=== PATIENT | male | born 1990 | race Two or more races ===

== ENCOUNTER 2016-10-26 17:55 | Inpatient (IN) | payer OTHER ==
[~2016-10-26] VITALS: Ht 165.1 cm; Wt 72.6 kg
[2016-10-26 20:09] LABS: CONTROL LINE INT CTR LINE PRESENT; METHADONE URINE NEGATIVE (NEGATIVE); TRICYCLIC ANTIDEPRESS URINE NEGATIVE (NEGATIVE)
[2016-10-26 20:21] LABS: ALBUMIN 4.5 GM/DL (3.2-5.2); ALBUMIN/GLOBULIN RATIO 1.22 (1.00-1.93); ALKALINE PHOSPHATASE 92 U/L (45-117); ALT/SGPT 30 U/L (12-78); ANION GAP 10 MEQ/L (8-16); AST/SGOT 25 U/L (15-37); BILIRUBIN,DIRECT < 0.1 MG/DL (0.0-0.2); BILIRUBIN,TOTAL 0.3 MG/DL (0.2-1.0); BLOOD UREA NITROGEN 11 MG/DL (7-18); CALCIUM LEVEL 8.8 MG/DL (8.5-10.1); CARBON DIOXIDE LEVEL 28 MEQ/L (21-32); CHLORIDE LEVEL 108 MEQ/L (98-107); CREATININE FOR GFR 1.15 MG/DL (0.70-1.30); GLOMERULAR FILTRATION RATE > 60.0 (>60); GLUCOSE, FASTING 97 MG/DL (70-105); POTASSIUM SERUM 3.6 MEQ/L (3.5-5.1); SODIUM LEVEL 146 MEQ/L (136-145); TOTAL PROTEIN 8.2 GM/DL (6.4-8.2)
[2016-10-26 20:45] LABS: MEAN CORPUSCULAR HGB CONC 34.4 g/dl (32.0-36.5); MEAN CORPUSCULAR VOLUME 87.3 fl (80.0-96.0); RED CELL DISTRIBUTION WIDTH 12.5 % (11.5-14.5); WHITE BLOOD COUNT 6.6 K/mm3 (4.0-10.0)
--- NOTE | 2016-10-27 01:42 | REP ---
Clinical: Acute chest pain . Comparison: None . Technique: PA and lateral. Findings: The mediastinum and cardiac silhouette are normal. The lung john are clear and without acute consolidation, effusion, or pneumothorax. The skeletal structures are intact and normal. Impression: 1. No acute cardiopulmonary process. Signed by Hamilton Camacho MD 10/27/2016 01:33 A
--- NOTE | 2016-10-27 14:13 | EDDOCDS ---
Physician Documentation [facility] Name: Neno Chapman Age: 26 yrs Sex: Male : 1990 Arrival Date: 10/26/2016 Time: 17:55 Bed OBSERVATION Private MD: Gaby [facility] [place] Disposition: 10/27/16 14:11 Hospitalization ordered by Juan Ham for Inpatient Admission. Preliminary diagnosis is Major depressive disorder, recurrent, unspecified. - Bed requested for Admit. - Status is Inpatient Admission. ml6 - Condition is Stable. - Problem is new. - Symptoms have improved. Historical: - Allergies: no known allergies; - Home Meds: 1. Percocet Oral 1 tab as needed (Last dose: 10/26/2016 16:00) - PMHx: none; - PSHx: none; - Social history: Smoking status: Patient states was never smoker of tobacco. No barriers to communication noted, The patient speaks fluent Khmer. - Family history: Not pertinent. - : The pt / caregiver states he / she is not on anticoagulants. Home medication list is obtained from the patient. - Exposure Risk Screening:: None identified. Vital Signs: 10/26 17:58 BP 187 / 101; Pulse 105; Resp 20; Pulse Ox 97% on R/A; Weight 63.5 kg / 139.99 lbs (R); elp Height 5 ft. 5 in. (165.10 cm) (R); 19:29 BP 167 / 84; Pulse 84; Resp 18; Temp 98.4(O); Pulse Ox 99% on R/A; mgs 10/27 00:13 BP 156 / 74; Pulse 94; Resp 18; Temp 98.0(O); Pulse Ox 97% on R/A; Pain 0/10; rw1 04:38 BP 145 / 75; Pulse 83; Resp 16; Temp 97.7(T); Pulse Ox 96% on R/A; Pain 0/10; rw1 10:09 BP 164 / 78; Pulse 81; Resp 16; Temp 98.1(O); Pulse Ox 98% on R/A; Pain 0/10; ml6 13:41 BP 155 / 83; Pulse 84; Resp 16; Temp 98.3(O); Pulse Ox 98% on R/A; Pain 0/10; ml6 10/26 17:58 Body Mass Index 23.30 (63.50 kg, 165.10 cm) elp MDM: 10/26 19:24 Consult PFS/PSA/Demurrage Clerk ordered. br1 19:24 Consult PFS/PSA/Demurrage Clerk: Patient's case requires discussion with on-call br1 Psychiatrist ordered. 19:24 PSA/PFS to call Nursing Woodenware Assembler, to enter patient data on [place] Safe Act if patient br1 involuntarily admitted or transferred for SI or HI ordered. 19:24 Confirm accurate psychiatric medication list and times of last dosage ordered. br1 19:24 Detain Pt Until Medically/PFS Cleared ordered. br1 19:24 Recheck B/P ordered. br1 19:24 Oral Temp ordered. br1 19:24 Acetaminophen Level Ordered. EDMS 19:24 Basic Metabolic Profile Ordered. EDMS 19:24 Complete Blood Count Ordered. EDMS 19:24 Drug Eval Toxicology ED Only Ordered. EDMS 19:25 Ethyl Alcohol (ethanol) Ordered. EDMS 19:25 Liver Profile Ordered. EDMS 19:25 Salicylate Level Ordered. EDMS 19:25 Thyroid Stimulating Hormone Ordered. EDMS 19:30 Chest, 2 View (pa\E\lat) Ordered. EDMS 19:30 ECG WITH READING ER PHYS+CARDIAG ordered. EDMS 19:39 TROPONIN Ordered. EDMS 19:41 Financial registration complete. [email or web address] 19:46 [facility] Payment Agreement was scanned into Email Data Source and attached to record. [email or web address] 20:27 Drug Eval Toxicology ED Only Reviewed. br1 20:39 Acetaminophen Level Reviewed. br1 20:39 Basic Metabolic Profile Reviewed. br1 20:39 Ethyl Alcohol (ethanol) Reviewed. br1 20:39 Salicylate Level Reviewed. br1 20:39 Liver Profile Reviewed. br1 20:39 Thyroid Stimulating Hormone Reviewed. br1 20:39 TROPONIN Reviewed. br1 20:50 Complete Blood Count Reviewed. br1 10/27 05:05 REGULAR DIET PLASTIC STERLING+DIET ordered. EDMS 07:02 Consult PFS/PSA/Demurrage Clerk complete. rb 11:50 Consult PFS/PSA/Demurrage Clerk: Patient's case requires discussion with on-call rb Psychiatrist complete. 11:50 PSA/PFS to call Nursing Woodenware Assembler, to enter patient data on [place] Safe [place] if patient rb involuntarily admitted or transferred for SI or HI complete. 12:00 REGULAR DIET PLASTIC STERLING+DIET ordered. EDMS 13:33 Admit to IMHU: ordered. EDMS 13:36 [facility] Legal paperwork was scanned into Email Data Source and attached to record. cs Signatures: Dispatcher [employer] EDAaron Torrez, Yvonne Isidro RN, RN RN jan Baxter, Emelia, PSA PSA rb Aline, Sumit, PSA PSA cs Mariano Maddox MD MD br1 Maurice Verdin RN RN ml6 Maria Guadalupe Mcgill MD MD June Rowland, Reg Reg [email or web address] The chart was reviewed and I authenticate all verbal orders and agree with the evaluation and treatment provided.Corrections: (The following items were deleted from the chart) 10/26 19:39 19:30 TROPONIN+LAB ordered. EDMS EDMS Attachments: 19:46 [facility] Payment Agreement [email or web address] MTDD
--- NOTE | 2016-10-27 14:14 | EDDOCDS ---
Nurse's Notes [facility] Name: Neno Chapman Age: 26 yrs Sex: Male : 1990 Arrival Date: 10/26/2016 Time: 17:55 Bed OBSERVATION Private MD: Gaby [facility] Diagnosis: Major depressive disorder, recurrent, unspecified Presentation: 10/26 18:02 Presenting complaint: Patient states: Ingested large amounts of vodka, along with a dwg Percocet, present and states they have had ''problems at home''. Denies suicidal attempt or ideation. Adult Sepsis Screening: The patient does not have new or worsening altered mentation. Patient's respiratory rate is less than 22. Systolic blood pressure is greater than 100. Patient has a qSOFA score of 0- Negative Sepsis Screen. Suicide/Homicide risk assessment- the patient denies having any suicidal and/or homicidal ideations and does not present with any other emotional, behavioral or mental health complaints. Status: The patient is an active duty nutritional services host. Transition of care: patient was not received from another setting of care. 18:02 Method Of Arrival: Walkin/Carried/Asstd dwg 18:10 Presenting complaint: states: states that during an argument earlier today dwg patient pulled out a pocket knife and threatened to stab self, patient denies saying that. Acuity level changed due to complexity of care. Suicide/Homicide risk assessment- The patient admits to and/or has been reported to be having suicidal ideations. The patient reports that he/she has a recent or current history of substance abuse. 18:10 Acuity: KAYCEE Level [address] [facility] Triage Assessment: 18:08 General: Appears in no apparent distress, Behavior is cooperative. Pain: Denies pain. [facility] 10/27 14:04 HIV screening NA for this visit Offered previously. ml6 Historical: - Allergies: no known allergies; - Home Meds: 1. Percocet Oral 1 tab as needed (Last dose: 10/26/2016 16:00) - PMHx: none; - PSHx: none; - Social history: Smoking status: Patient states was never smoker of tobacco. No barriers to communication noted, The patient speaks fluent Azeri. - Family history: Not pertinent. - : The pt / caregiver states he / she is not on anticoagulants. Home medication list is obtained from the patient. - Exposure Risk Screening:: None identified. Screenin:29 Screening information is obtained from the patient. Fall risk: No risks identified. sherwin Assistance ADL's: requires no assistance with activities of daily living. Abuse/DV Screen: The patient / caregiver reports he/she is: not in a situation that causes fear, pain or injury. Nutritional screening: No deficits noted. Advance Directives: Currently, there is no health care proxy. There is no active DNR order. There is no living will. There is no Power of Boat Garnisher. Advance directive information has not previously been placed in an [facility] medical record. Further advance directive information is declined. home support is adequate. Assessment: 10/26 18:16 General: Direct to room 30, and member from his unit present as escort. Giulia Elliott RN made aware.. 18:55 Reassessment: Dinner tray brought in for patient's child. Shook patient and tried to kcs rouse him - snoring loudly and would not wake up. , child and escort remain at bedside.. 19:28 General: Appears in no apparent distress, Behavior is cooperative. Pain: Location: left mgs clavicle, anterior aspect of left upper chest and left breast Pain currently is 5 out of 10 on a pain scale. Pain does not radiate. Neurological: Level of Consciousness is awake, alert. Cardiovascular: Capillary refill < 3 seconds Heart tones S1 S2 present. Respiratory: Airway is patent Respiratory effort is even, unlabored, Respiratory pattern is regular, symmetrical, Breath sounds are clear bilaterally. Derm: Skin is normal. 20:30 Reassessment: Patient appears in no apparent distress at this time. resting quietly on rw1 stretcher, safety maintained will monitor.. 21:29 Reassessment: Patient appears in no apparent distress at this time. resting quietly on rw1 stretcher, safety maintained will monitor.. 22:24 General: Appears in no apparent distress, comfortable, Behavior is cooperative, quiet, rw1 escorts at bedside at all times and V.O.S outside door. Safety maintained will monitor.. Neurological: No deficits noted. Level of Consciousness is awake, alert, obeys commands, Oriented to person, place, time. Respiratory: Airway is patent Respiratory effort is even, unlabored. Derm: Skin is pink, warm & dry. normal. 23:25 Reassessment: Patient appears in no apparent distress at this time. resting quietly on rw1 stretcher, safety maintained will monitor.. 10/27 00:27 Reassessment: Patient appears in no apparent distress at this time. Patient denies pain rw1 at this time. resting quietly on stretcher with eyes closed, safety maintained will monitor.. 01:29 General: Appears in no apparent distress, comfortable, Behavior is cooperative, Smells sherwin of alcohol. Pain: Denies pain. Neurological: No deficits noted. Level of Consciousness is awake, alert, obeys commands, Oriented to person, place, time, Speech is normal. Respiratory: No deficits noted. Airway is patent Respiratory effort is even, unlabored, Respiratory pattern is regular, symmetrical. Derm: Skin is pink, warm & dry. 02:22 Reassessment: Patient appears in no apparent distress at this time. resting quietly on rw1 stretcher with eyes closed, safety maintained will monitor.. 03:32 Reassessment: Patient appears in no apparent distress at this time. resting quietly on rw1 stretcher, safety maintained will monitor.. 04:38 General: Appears in no apparent distress, comfortable, Behavior is appropriate for age, rw1 cooperative, quiet. Pain: Denies pain. Neurological: Level of Consciousness is awake, obeys commands, Oriented to person, place, time. Respiratory: Airway is patent Respiratory effort is even, unlabored. Derm: Skin is pink, warm & dry. normal. 05:00 General: Appears in no apparent distress, comfortable, Behavior is quiet. Pain: Denies ko2 pain. Neurological: Level of Consciousness is awake, alert, obeys commands. Respiratory: Airway is patent Respiratory effort is even, unlabored, Respiratory pattern is regular, symmetrical. Derm: Skin is normal. 05:31 Reassessment: Patient appears in no apparent distress at this time. resting quietly on rw1 stretcher, safety maintained will monitor.. 06:23 General: Appears in no apparent distress, comfortable, Behavior is resting quietly on rw1 stretcher with escort at bedside, safety maintained. Respiratory: Airway is patent Respiratory effort is even, unlabored. Derm: Skin is pink, warm & dry. normal. 07:45 Reassessment: Patient appears in no apparent distress at this time. sleeping, kr3 respirations unlabored. Derm: Skin is normal. 08:37 Reassessment: Patient appears in no apparent distress at this time. awaiting PSA kr3 evaluation. 09:10 General: Appears in no apparent distress, comfortable, Behavior is appropriate for age, ml6 cooperative. Pain: Denies pain. Neurological: No deficits noted. Level of Consciousness is awake, alert, Oriented to person, place, time. Cardiovascular: No deficits noted. Capillary refill < 3 seconds is brisk in bilateral fingers toes Heart tones S1 S2 present. Respiratory: No deficits noted. Airway is patent Respiratory effort is even, unlabored, Respiratory pattern is regular, symmetrical, Breath sounds are clear bilaterally. 10:12 Reassessment: Patient appears in no apparent distress at this time. Patient denies pain ml6 at this time. Patient states symptoms have improved. no change from previous assessment, patient awaiting disposition. 11:15 Reassessment: Patient appears in no apparent distress at this time. Patient denies pain ml6 at this time. Patient states symptoms have improved. patient sitting in room speaking with chain of command. 12:20 General: Appears in no apparent distress, comfortable, Behavior is appropriate for age, ml6 cooperative. Pain: Denies pain. Location: right eye and left eye Pain currently is 5 out of 10 on a pain scale. Pain does not radiate. Quality of pain is described as aching, Pain began 2-3 days ago Is continuous. Neurological: No deficits noted. Cardiovascular: No deficits noted. Capillary refill < 3 seconds is brisk in bilateral fingers toes Heart tones S1 S2 present. Respiratory: No deficits noted. Airway is patent Respiratory effort is even, unlabored, Respiratory pattern is regular, symmetrical, Breath sounds are clear bilaterally. GI: No deficits noted. 13:30 Reassessment: Patient appears in no apparent distress at this time. Patient denies pain ml6 at this time. Patient states symptoms have improved. 14:03 General: Appears in no apparent distress, Behavior is appropriate for age, cooperative. ml6 Pain: Denies pain. Neurological: No deficits noted. Level of Consciousness is awake, alert, Oriented to person, place, time. Cardiovascular: No deficits noted. Capillary refill < 3 seconds is brisk in bilateral fingers toes. Respiratory: No deficits noted. Airway is patent Respiratory effort is even, unlabored, Respiratory pattern is regular, symmetrical. Mental Health Eval: 10:06 Mental health consult is initiated at 09:10. Status: The patient is an active rb duty nutritional services host. [facility] Behavioral Health: The patient is not an established patient of [facility] Behavioral Health. 10:35 Referral Information: Evaluation referral is generated by a relative; spouse, and Escort. The patient was referred for evaluation because Pt presented to ED after Pt stated +SI. Pt presented +ETOH, is now sober. Pt reported "Made a poor decision yesterday, I started drinking and I over drank". According to Pt, of 3 years wants a divorce, but currently living in same house. Pt admitted to fleeting thoughts of SI, more often when "I feel like I can't complete a task or increase sense of failure". Pt stated "My and Son's life would be better if I wasn't around anymore". According to , They had an argument, PT was intoxicated, stated"no one cares" and took out his knife as he walked away. called MPs. Pt reported currently in [place] PT program to prepare for [employer]. . Subjective: The patients chief complaint is Depressed, +SI, unknown plan.. Delusions are denied. Patient's mood is dysphoric, hopeless, Hallucinations are denied. Mental Health history: alcohol abuse, depression, suicide gesture by hanging. reported Pt made a SI gesture a year ago, while in [facility], by hanging a rope in the garage with intent to hang himself. stopped him. Police were called but never showed up according to . Mental Health Admissions: None. Current Outpatient Mental Health Services: None. Pt stated completed [facility] on [place]. Was sober for 117 days after completing the program then started drinking again. . Current living environment is The patient currently lives with his / her spouse, and 2y/o son.. Patient presents to Emergency Department with the following symptoms within the past 2 weeks: alcohol abuse, depressed mood, feelings of helplessness/hopelessness, marital problem, poor impulse control, suicidal ideation with plan for unknown. Substance abuse: Patient uses of liquor, 1/2 liter. Mental status exam: Patients appearance is appropriate, Patient's behavior is cooperative, minimally responsive Speech is unspontaneous Affect is flat. Mood is dysphoric. Hallucinations are denied. Appetite is normal. Memory is good. Energy level is normal. Content of thought is depressive. , Thought process is characterized by flight of ideas. Cognitive level is oriented to person, place, time and situation Patient's insight is poor. Judgement is poor. Rapport with interviewer is good. guarded. Suicidal Ideation present with a plan to kill self by unknown. Homicidal ideation is not present. Disposition: Medically cleared for disposition by Maurice Leija DO Psychiatric Consult is performed by phone with Dr Alyssa Denis. [facility] Admission Criteria: The patient is experiencing suicidal ideation. The patient displays symptoms of severe psychiatric disorder resulting in disordered behavior and significant interference with his / her ability to maintain self care. The patient requires continuous observation and/or control to protect self, others or property. The patient's care requires a multi-modal treatment plan under close supervision and coordination due to the complexity and severity of the patient's symptoms. Legal Status: Patient's legal status will be Emergency admission: . [place] Safe Act: [place] Safe Act is applicable to this patient. The patient poses a risk to self or other and the Nursing Break Up Worker has been notified. He/She will enter the patient's data. Insurance Pre-Certification: Not Required. 14:02 DSM-V Differential Diagnosis: Unspecified Depressive Disorder (F32.9). Narrative: Pt rb legals placed with belongings. Vital Signs: 10/26 17:58 BP 187 / 101; Pulse 105; Resp 20; Pulse Ox 97% on R/A; Weight 63.5 kg (R); Height 5 ft. elp 5 in. (165.10 cm) (R); 19:29 BP 167 / 84; Pulse 84; Resp 18; Temp 98.4(O); Pulse Ox 99% on R/A; mgs 10/27 00:13 BP 156 / 74; Pulse 94; Resp 18; Temp 98.0(O); Pulse Ox 97% on R/A; Pain 0/10; rw1 04:38 BP 145 / 75; Pulse 83; Resp 16; Temp 97.7(T); Pulse Ox 96% on R/A; Pain 0/10; rw1 10:09 BP 164 / 78; Pulse 81; Resp 16; Temp 98.1(O); Pulse Ox 98% on R/A; Pain 0/10; ml6 13:41 BP 155 / 83; Pulse 84; Resp 16; Temp 98.3(O); Pulse Ox 98% on R/A; Pain 0/10; ml6 10/26 17:58 Body Mass Index 23.30 (63.50 kg, 165.10 cm) elp Vitals: 10/26 17:58 Log In Time: October 26, 2016 at 17:56. RN notified that patient meets Red Flag elp criteria. ED Course: 17:56 Patient visited by Jasmin Lynn PCA. elp 17:56 Patient moved to Waiting elp 17:58 Gaby [facility] is Private Physician. elp 17:59 Patient visited by Jasmin Lynn PCA. elp 18:06 Triage Initiated dwg 18:12 Patient moved to 30 dwg 18:20 Patient visited by Don Angel. dem1 18:35 Patient visited by Don Angel. dem1 18:50 Patient visited by Don Angel. dem1 19:05 Mariano Maddox MD is Attending Physician. br1 19:15 Pt greeted and oriented to ED. Patient advised of names of staff involved in care, kb5 location of call salgado, wait times and NPO status. Accompanied by Significant Other, and Escort, Patient has correct armband on for positive identification. Placed in psych safe attire. Bed in low position. Call light in reach. Side rails up X 1. Security observing. Property removed, given to SO, per patient request. Psych Safety Check: Location: Medical Room. Visual Assessment: Cooperative. 19:22 Patient visited by Mariano Maddox MD. br1 19:30 Patient visited by Maurice Yu RN. mgs 19:30 Psych Safety Check: Location: Medical Room. Visual Assessment: Cooperative. kb5 19:45 Psych Safety Check: Location: Medical Room. Visual Assessment: Cooperative. kb5 19:46 [facility] Payment Agreement was scanned into [employer]Ga[employer] and attached to record. ks16 19:47 Patient visited by Renny Renteria PCA. kb5 19:53 Patient visited by Renny Renteria PCA. kb5 20:00 Psych Safety Check: Location: Medical Room. Visual Assessment: Cooperative. kb5 20:00 EKG done. (by ED staff). Reviewed by Mariano Maddox MD. kb5 20:15 Psych Safety Check: Location: Medical Room. Visual Assessment: Cooperative. kb5 20:21 Patient visited by Rudy Renteriaopher LAW OFFICE RECEPTIONIST. kb5 20:30 Psych Safety Check: Location: Medical Room. Visual Assessment: Cooperative. kb5 20:32 Patient visited by Rudy Renteriaopher, LAW OFFICE RECEPTIONIST. kb5 20:45 Psych Safety Check: Location: Medical Room. Visual Assessment: Cooperative. kb5 20:50 Patient visited by Rudy Renteriaopher LAW OFFICE RECEPTIONIST. kb5 21:00 Psych Safety Check: Location: Medical Room. Visual Assessment: Cooperative. kb5 21:06 Patient visited by Tl Renteriaer LAW OFFICE RECEPTIONIST. kb5 21:15 Psych Safety Check: Location: Medical Room. Visual Assessment: Cooperative. kb5 21:17 Patient visited by Renny Renteria LAW OFFICE RECEPTIONIST. kb5 21:29 Gerry Paula LPN is Primary Nurse. rw1 21:30 Psych Safety Check: Location: Medical Room. Visual Assessment: Cooperative. kb5 21:36 Patient visited by Renny Renteria LAW OFFICE RECEPTIONIST. kb5 21:45 Psych Safety Check: Location: Medical Room. Visual Assessment: Cooperative. kb5 21:51 Patient visited by Gerry Paula LPN. rw1 22:00 Psych Safety Check: Location: Medical Room. Visual Assessment: Cooperative. kb5 22:05 Patient visited by Gerry Paula LPN. rw1 22:15 Psych Safety Check: Location: Medical Room. Visual Assessment: Cooperative. kb5 22:21 Patient visited by Tl Renteriaer LAW OFFICE RECEPTIONIST. kb5 22:30 Psych Safety Check: Location: Medical Room. Visual Assessment: Cooperative. kb5 22:42 Patient visited by Tl Renteriaer LAW OFFICE RECEPTIONIST. kb5 22:45 Psych Safety Check: Location: Medical Room. Visual Assessment: Cooperative. kb5 23:00 Patient visited by Rudy Renteriaopher LAW OFFICE RECEPTIONIST. kb5 23:00 Psych Safety Check: Location: Medical Room. Visual Assessment: Cooperative. kb5 23:15 Patient visited by Rudy Renteriaopher LAW OFFICE RECEPTIONIST. kb5 23:15 Psych Safety Check: Location: Medical Room. Visual Assessment: Cooperative. kb5 23:30 Patient visited by Gerry Paula LPN. rw1 23:30 Psych Safety Check: Location: Medical Room. Visual Assessment: Cooperative. kb5 23:45 Patient visited by Gerry Paula LPN. rw1 23:45 Psych Safety Check: Location: Medical Room. Visual Assessment: Cooperative. kb5 10/27 00:00 Psych Safety Check: Location: Medical Room. Visual Assessment: Cooperative. kb5 00:01 Patient visited by Renny Renteria PCA. kb5 00:08 Attending Physician role handed off by Mariano Maddox MD mm11 00:08 Maurice Leija DO is Attending Physician. mm11 00:15 Psych Safety Check: Location: Medical Room. Visual Assessment: Cooperative. kb5 00:16 Patient visited by Renny Renteria PCA. kb5 00:30 Psych Safety Check: Location: Medical Room. Visual Assessment: Cooperative. kb5 00:31 Patient visited by Renny Renteria PCA. kb5 00:45 Psych Safety Check: Location: Medical Room. Visual Assessment: Cooperative. kb5 00:49 Patient visited by Renny Renteria PCA. kb5 01:00 Psych Safety Check: Location: Medical Room. Visual Assessment: Cooperative. kb5 01:10 Patient visited by Renny Renteria PCA. kb5 01:15 Patient visited by Renny Renteria PCA. kb5 01:15 Psych Safety Check: Location: Medical Room. Visual Assessment: Cooperative. kb5 01:29 The patient / caregiver is instructed regarding the plan of care and ED course. Patient sherwin has correct armband on for positive identification. Placed in psych safe attire. Bed in low position. Call light in reach. Side rails up X 1. Security observing. 01:29 No IV's were initiated during this patient's visit. No procedures done that require sherwin assistance. 01:30 Patient visited by Renny Renteria PCA. kb5 01:30 Psych Safety Check: Location: Medical Room. Visual Assessment: Cooperative. kb5 01:45 Patient visited by Renny Renteria PCA. kb5 01:45 Psych Safety Check: Location: Medical Room. Visual Assessment: Cooperative. kb5 01:56 Chest, 2 View (pa\\E\\lat) Returned. EDMS 02:00 Patient visited by Renny Renteria PCA. kb5 02:00 Psych Safety Check: Location: Medical Room. Visual Assessment: Cooperative. kb5 02:15 Patient visited by Renny Renteria PCA. kb5 02:15 Psych Safety Check: Location: Medical Room. Visual Assessment: Cooperative. kb5 02:30 Patient visited by Renny Renteria PCA. kb5 02:30 Psych Safety Check: Location: Medical Room. Visual Assessment: Cooperative. kb5 02:35 Patient moved to [facility] sep 02:47 Patient visited by Gerry Paula LPN. rw1 02:59 Patient visited by Antonio Gloria. tr 03:16 Patient visited by Antonio Gloria. tr 03:28 Patient visited by Antonio Gloria. tr 03:46 Patient visited by Antonio Gloria. tr 04:02 Patient visited by Antonio Gloria. tr 04:18 Patient visited by Antonio Gloria. tr 04:44 Patient visited by Antonio Gloria. tr 05:00 Patient visited by Antonio Gloria. tr 05:17 Patient visited by Antonio Gloria. tr 05:29 Patient visited by Antonio Gloria. tr 05:40 Patient moved to [facility]11 05:48 Patient visited by Antonio Gloria. tr 06:00 Patient visited by Antonio Gloria. tr 06:46 Patient visited by Antonio Gloria. tr 07:00 Patient visited by Antonio Gloria. tr 07:08 Patient visited by Louis Ramirez Security Aide. pjf 07:17 Patient visited by Louis Ramirez Security Aide. pjf 07:34 Patient visited by Louis Ramirez Security Aide. pjf 07:45 Primary Nurse role handed off by Gerry Paula LPN kr3 08:22 Patient visited by Louis Ramirez Security Aide. pjf 08:35 Patient visited by Louis Ramirez Security Aide. pjf 08:45 Patient visited by Louis Ramirez Security Aide. pjf 08:58 Patient visited by Louis Ramirez Security Aidonur. pjf 09:15 Patient visited by Louis Ramirez Security Aidonur. pjf 09:30 Patient visited by Louis Ramirez Security Aide. pjf 09:58 Patient visited by Maurice Verdin RN. ml6 10:17 Patient visited by Louis Ramirez Security Aidonur. pjf 10:44 Patient visited by Louis Ramirez Security Aidonur. pjf 10:54 Patient visited by Louis Ramirez Security Aidonur. pjf 11:02 Psych Safety Check: Location: Psych Room. Visual Assessment: Cooperative. tmm1 11:16 Psych Safety Check: Location: Psych Room. Visual Assessment: Cooperative. tmm1 11:34 Psych Safety Check: Location: Psych Room. Visual Assessment: Cooperative. tmm1 12:03 Psych Safety Check: Location: Psych Room. Visual Assessment: Cooperative. tmm1 12:20 Psych Safety Check: Location: Psych Room. Visual Assessment: Cooperative. tmm1 12:34 Psych Safety Check: Location: Psych Room. Visual Assessment: Cooperative. tmm1 12:50 Psych Safety Check: Location: Psych Room. Visual Assessment: Cooperative. tmm1 13:11 Psych Safety Check: Location: Psych Room. Visual Assessment: Cooperative. tmm1 13:33 Psych Safety Check: Location: Psych Room. Visual Assessment: Cooperative. tmm1 13:36 [facility] Legal paperwork was scanned into mGaadi and attached to record. cs 13:48 Psych Safety Check: Location: Psych Room. Visual Assessment: Cooperative. tmm1 14:04 Psych Safety Check: Location: Psych Room. Visual Assessment: Cooperative. tmm1 14:10 Juan Ham MD is Hospitalizing Provider. fg Attachments: 10/27 13:36 [facility] Legal paperwork cs Order Results: Lab Order: Acetaminophen Level; SPEC'M 10/26/16 19:49 Test: ACETAMINOPHEN LEVEL; Value: < 2.0; Range: 10.0-30.0; Abnormal: Below low normal; Units: UG/ML; Status: F Lab Order: Basic Metabolic Profile; SPEC'M 10/26/16 19:49 Test: GLUCOSE, FASTING; Value: 97; Range: 70-105; Units: MG/DL; Status: F Test: BLOOD UREA NITROGEN; Value: 11; Range: 7-18; Units: MG/DL; Status: F Test: CREATININE FOR GFR; Value: 1.15; Range: 0.70-1.30; Units: MG/DL; Status: F Test: GLOMERULAR FILTRATION RATE; Value: > 60.0; Range: >60; Status: F Test: SODIUM LEVEL; Value: 146; Range: 136-145; Abnormal: Above high normal; Units: MEQ/L; Status: F Test: POTASSIUM SERUM; Value: 3.6; Range: 3.5-5.1; Units: MEQ/L; Status: F Test: CHLORIDE LEVEL; Value: 108; Range: 98-107; Abnormal: Above high normal; Units: MEQ/L; Status: F Test: CARBON DIOXIDE LEVEL; Value: 28; Range: 21-32; Units: MEQ/L; Status: F Test: ANION GAP; Value: 10; Range: 8-16; Units: MEQ/L; Status: F Test: CALCIUM LEVEL; Value: 8.8; Range: 8.5-10.1; Units: MG/DL; Status: F Test Note: ; Units are mL/min/1.73 m2 Chronic Kidney Disease Staging per NKF: Stage I & II GFR >=60 Normal to Mildly Decreased Stage III GFR 30-59 Moderately Decreased Stage IV GFR 15-29 Severely Decreased Stage V GFR <15 Very Little GFR Left ESRD GFR <15 on TOOL MECHANIC Lab Order: Complete Blood Count; [facility] 10/26/16 19:49 Test: WHITE BLOOD COUNT; Value: 6.6; Range: 4.0-10.0; Units: K/mm3; Status: F Test: RED BLOOD COUNT; Value: 5.44; Range: 4.30-6.10; Units: M/mm3; Status: F Test: HEMOGLOBIN; Value: 16.3; Range: 14.0-18.0; Units: g/dl; Status: F Test: HEMATOCRIT; Value: 47.5; Range: 42.0-52.0; Units: %; Status: F Test: MEAN CORPUSCULAR VOLUME; Value: 87.3; Range: 80.0-96.0; Units: fl; Status: F Test: MEAN CORPUSCULAR HEMOGLOBIN; Value: 30.0; Range: 27.0-33.0; Units: pg; Status: F Test: MEAN CORPUSCULAR HGB CONC; Value: 34.4; Range: 32.0-36.5; Units: g/dl; Status: F Test: RED CELL DISTRIBUTION WIDTH; Value: 12.5; Range: 11.5-14.5; Units: %; Status: F Test: PLATELET COUNT, AUTOMATED; Value: 230; Range: 150-450; Units: k/mm3; Status: F Lab Order: Drug Eval Toxicology ED Only; SPEC'M 10/26/16 19:49 Test: AMPHETAMINES LEVEL URINE; Value: NEGATIVE; Range: NEGATIVE; Status: F Test: BARBITURATES URINE; Value: NEGATIVE; Range: NEGATIVE; Status: F Test: BENZODIAZEPINES URINE; Value: NEGATIVE; Range: NEGATIVE; Status: F Test: CANNABINOIDS URINE; Value: NEGATIVE; Range: NEGATIVE; Status: F Test: COCAINE METABOLITE URINE; Value: NEGATIVE; Range: NEGATIVE; Status: F Test: METHADONE URINE; Value: NEGATIVE; Range: NEGATIVE; Status: F Test: OPIATES URINE; Value: NEGATIVE; Range: NEGATIVE; Status: F Test: TRICYCLIC ANTIDEPRESS URINE; Value: NEGATIVE; Range: NEGATIVE; Status: F Test Note: ; ALL PRESUMPTIVE POSITIVE FINDINGS ARE UNCONFIRMED NORMAL VALUES THRESHOLD IN NG/ML AMPHETAMINES 1000 METHAMPHETAMINES 1000 BARBITURATES 300 BENZODIAZEPINES 300 CANNABINOIDS (THC) 50 COCAINE METABOLITE 300 METHADONE 300 OPIATES 300 PHENCYCLIDINE 25 TRICYCLIC ANTIDEPRESSANTS 1000 RESULTS ARE FOR MEDICAL PURPOSES ONLY. ALL URINE SPECIMENS WILL BE SAVED FOR 3 DAYS. IF CONFIRMATION OF A PRESUMPTIVE POSTIVE SCREEN RESULT IS DESIRED, CALL CHEMISTRY ([phone]) AND REQUEST URINE TO BE SENT TO REFERENCE LAB. FOR A LIST OF CLOSELY RELATED COMPOUNDS PLEASE CALL THE LAB. Lab Order: Ethyl Alcohol (ethanol); SPEC'M 10/26/16 19:49 Test: ETHYL ALCOHOL (ETHANOL); Value: 0.314; Range: 0.000-0.010; Abnormal: Above high normal; Units: %; Status: F Lab Order: Liver Profile; SPEC'M 10/26/16 19:49 Test: AST/SGOT; Value: 25; Range: 15-37; Units: U/L; Status: F Test: ALT/SGPT; Value: 30; Range: 12-78; Units: U/L; Status: F Test: ALKALINE PHOSPHATASE; Value: 92; Range: 45-117; Units: U/L; Status: F Test: BILIRUBIN,TOTAL; Value: 0.3; Range: 0.2-1.0; Units: MG/DL; Status: F Test: BILIRUBIN,DIRECT; Value: < 0.1; Range: 0.0-0.2; Units: MG/DL; Status: F Test: TOTAL PROTEIN; Value: 8.2; Range: 6.4-8.2; Units: GM/DL; Status: F Test: ALBUMIN; Value: 4.5; Range: 3.2-5.2; Units: GM/DL; Status: F Test: ALBUMIN/GLOBULIN RATIO; Value: 1.22; Range: 1.00-1.93; Status: F Lab Order: Salicylate Level; SPEC'10/26/16 19:49 Test: SALICYLATE LEVEL; Value: < 1.7; Range: 5.0-30.0; Abnormal: Below low normal; Units: MG/DL; Status: F Lab Order: Thyroid Stimulating Hormone; SPEC10/26/16 19:49 Test: THYROID STIMULATING HORMONE; Value: 0.358; Range: 0.358-3.740; Units: uIU/ML; Status: F Lab Order: TROPONIN; SPEC10/26/16 19:49 Test: TROPONIN I; Value: < 0.02; Range: < 0.10; Units: NG/ML; Status: F Test Note: ; Troponin I Reference Interval for [employer] LOCI: 99th Percentile= 0.00-0.045 ng/ml Risk Stratification: <= 0.10 ng/ml Decreased Risk for Adverse Clinical Events. 0.10-1.50 ng/ml Increased Risk for Adverse Clinical Events. Evaluation of additional criterion and/or repeat testing in 2-6 hours is suggested to rule out myocardial damage. >= 1.50 ng/ml Indicative of Myocardial Injury. Radiology Order: Chest, 2 View (pa\\E\\lat) Test: Chest, 2 View (pa\\E\\lat) REASON FOR EXAMINATION: Chest Pain; Clinical: Acute chest pain .; ; Comparison: None .; ; Technique: PA and lateral.; ; Findings:; The mediastinum and cardiac silhouette are normal. The lung john are clear and; without acute consolidation, effusion, or pneumothorax. The skeletal structures; are intact and normal.; ; Impression:; 1. No acute cardiopulmonary process.; ; ; Signed by; Hamilton Camacho MD 10/27/2016 01:33 A; Outcome: 14:03 Discharge Assessment: patient administered narcotics - no. The following High Risk ml6 Discharge criteria are identified: None. Admitted to Psych accompanied by tech, via wheelchair, with chart. Condition: stable. No special radiology studies were completed. 14:11 Decision to Hospitalize by Provider. fg 14:13 Patient left the ED. ml6 Signatures: Dispatcher [employer] EDMS Marlee Regalado, RN RN Jayla Pa, RN RN shelbig1 Aaron Doll, RN Yvonne Isidro, RN RN sherwin Sandhu, Emelia, PSA PSA rb Sumit Mireles, PSA PSA cs Ashley, Louis, Security A[facility] Faizan, Antonio Leah Syed,RN RN kr3 Gerry Paula LPN ABRASIVE WATER JET CUTTER OPERATOR rw1 Renny Renteria, LAW OFFICE RECEPTIONIST LAW OFFICE RECEPTIONIST kb5 Maurice Leija, DO mm11 Mariano Maddox MD MD br1 Maurice Verdin, RN RN ml6 Don Angel dem1 Teresa, Alisa, LAW OFFICE RECEPTIONIST LAW OFFICE RECEPTIONIST tmm1 Jasmin Lynn, LAW OFFICE RECEPTIONIST LAW OFFICE RECEPTIONIST elp Rose Marie Garcia,RN RN ko2 Maurice Yu,RN RN Maria Guadalupe Sandy MD MD fg Sorenson, Kimberly, Reg Reg [email or web address] Corrections: (The following items were deleted from the chart) 10/26 18:12 18:02 Acuity: KAYCEE Level 3 [facility] 20:21 19:30 Psych Safety Check: Location: Psych Room. Visual Assessment: nancy Huynh5 kb5 20:21 19:45 Psych Safety Check: Location: Psych Room. Visual Assessment: Lino kb5 kb5 10/27 03:32 03:29 Reassessment: Patient appears in no apparent distress at this time. resting rw1 quietly on stretcher, safety maintained will monitor.. kmg1 MTDD
[2016-10-27] MEDS ORDERED: OXYC1TAB23 PO (14:19)
[2016-10-27 14:29] VITALS: BP 171/85
[2016-10-27] MEDS ORDERED: traZODone 50 MG TAB PO PRN (15:15)
[2016-10-27] MEDS ORDERED: MOM 30ML SUSPENSION UDC PO PRN (15:15)
[2016-10-27] MEDS ORDERED: MAALOX 30 ML SUSP *UDC PO PRN (15:15)
[2016-10-27] MEDS ORDERED: ACETAMINOPHEN TAB 650MG DOSE (2X325MG) PO PRN (15:15)
[2016-10-27] MEDS ORDERED: IBUP800T23 PO (16:09)
[2016-10-27 18:00] VITALS: BP 160/84
--- NOTE | 2016-10-27 21:12 | ECGEPIP ---
Stationary ECG Study [facility] - ED Test Date: 2016-10-26 Pat Name: MILTON KEE Department: Room: - Gender: M Tomato Grader: [place] : 1990 Requested By: ROB Vivas Order Number: [id number] Reading MD: Ashley Dudley Measurements Intervals [place] Rate: 81 P: 33 AL: 134 QRS: -57 QRSD: 109 T: 2 QT: 384 QTc: 448 Interpretive Statements SINUS RHYTHM INCOMPLETE RIGHT BUNDLE BRANCH BLOCK LEFT ANTERIOR FASCICULAR BLOCK NSTTW ABNORMALITY NO PRIOR FOR COMPARISON Electronically Signed On 10-27-2016 21:12:17 EST by Ashley Dudley
[2016-10-28 06:11] VITALS: BP 130/58
[2016-10-28 07:37] LABS: ALBUMIN/GLOBULIN RATIO 1.25 (1.00-1.93); ALKALINE PHOSPHATASE 70 U/L (45-117); ALT/SGPT 24 U/L (12-78); ANION GAP 7 MEQ/L (8-16); AST/SGOT 17 U/L (15-37); BILIRUBIN,TOTAL 1.2 MG/DL (0.2-1.0); BLOOD UREA NITROGEN 12 MG/DL (7-18); CALCIUM LEVEL 9.4 MG/DL (8.5-10.1); CARBON DIOXIDE LEVEL 32 MEQ/L (21-32); CHLORIDE LEVEL 102 MEQ/L (98-107); CREATININE FOR GFR 1.09 MG/DL (0.70-1.30); GLOMERULAR FILTRATION RATE > 60.0 (>60); GLUCOSE, FASTING 106 MG/DL (70-105); POTASSIUM SERUM 4.1 MEQ/L (3.5-5.1); SODIUM LEVEL 141 MEQ/L (136-145); TOTAL PROTEIN 7.2 GM/DL (6.4-8.2)
[2016-10-28] MEDS: buPROPion 75 MG TAB PO SCH (08:38)
[2016-10-28 18:29] VITALS: BP 129/62
[2016-10-29 06:27] VITALS: BP 119/55
[2016-10-29] MEDS: buPROPion 75 MG TAB PO SCH (09:30)
--- NOTE | 2016-10-29 13:54 | MHHPE ---
DATE OF ADMISSION: 10/27/2016 CHIEF COMPLAINT: Frohna depressed. SUBJECTIVE: He is 26 years old, he is in the . He is , they have been together for a few years, have a 2-year-old son, they are going through a divorce. The patient came in as he had been drinking heavily, just started, and had a Percocet as well. They have been undergoing difficulties at home, going through the divorce. The patient had been distressed, and he had thoughts of killing himself, though no firm plans, and felt hopeless, suggesting that his and son would be better if he was not around. He feels he had said that because of the alcohol. He then at one point had taken out his knife, and he walked away, and his had called the police. He has been depressed, off and on, says he has tried hiding his difficulties, but that it has been getting more difficult. 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 He says he has generally tended to sleep well, appetite has been good, denies pervasive feelings of depression, though does indicate he feels he gets depressed when he drinks. He was somewhat vague on this, but suggested that his use of alcohol has contributed to difficulties within the marriage, to the point where they are thinking of , they are planning for a legal separation to begin with. He says he has enrolled in [facility] at [facility]. He says he has been planning to go to [employer], is unsure if his admission will impact that, is due to go later this year. He has been in the for a few years, has had one deployment, denies any trauma related symptoms or any symptoms indicative of a concussion. He says he was sober for about 4 months, at some point last year, last summer, and felt more "content" when he was not drinking. Suggested improvement in his mood overall when he is free of alcohol. The emergency room (ER) note suggests that he had thought of hanging himself when he was in [facility] within the last year, he does not seem to acknowledge that. This information was obtained by the ER from the patient's , apparently he had hung a rope in the garage with the intent of hanging himself and that the had stopped him. She also said that the police were called but they never showed up. PAST PSYCHIATRIC HISTORY: No history of inpatient hospitalization. Does not attend outpatient behavioral health clinic at [facility], but does say he is enrolled in [facility], the alcohol abuse program. No history consistent with hypomania or erasmo, nor with any psychosis. MEDICATIONS: He uses Percocet very rarely for pain. PAST MEDICAL HISTORY: None significant. SOCIAL HISTORY: He says he was raised in [facility], and that it was generally a good childhood, raised by a single mother. He graduated. He has been in the for the last few years. He denies any history of abuse when growing up. He and his have been together for the last few years, have a 2-year-old son, they are going through difficulties, and are planning on . He says he has a few friends, he can confide in them, both locally as well as in [facility]. MENTAL STATUS EXAMINATION: He neat, he is relatively short, he is well built, he is cooperative overall, but somewhat guarded at times. He is coherent. Good eye contact. His affect is restricted in range. He denies any active suicidal thoughts or intent. No homicidal ideas or intent. Currently, no evidence of any psychosis. His cognition is grossly intact. Intellect is average. Judgment and insight are questionable. ASSESSMENT: Adjustment disorder with depressed mood. Alcohol use disorder. Has been depressed, stressed, particularly secondary to his difficulties with alcohol, and the impact this has made on his marriage. It is not convincing that he has a major depressive episode. PLAN: He is admitted to the inpatient psychiatry unit, placed on relevant precautions. I would suggest obtaining collateral information, involving him in individual, group and milieu therapy. He will receive a medicine consult if indicated. I would hold off on using antidepressants, the indications are not convincing for now. We will need to reassess this as further clinical assessments are made. I would anticipate that he will be here 5-7 days. Collateral information will be important. He will be discharged with followup back to [facility] when he is stable. VITAL SIGNS: Blood pressure 130/58, pulse 59, temperature 98.2. Assessment took 40 minutes.
--- NOTE | 2016-10-29 15:14 | EDDOCDS ---
Physician Documentation [facility] Name: Neno Chapman Age: 26 yrs Sex: Male : 1990 Arrival Date: 10/26/2016 Time: 17:55 Bed OBSERVATION Private MD: Gaby [facility] [place]position: 10/27/16 14:11 Hospitalization ordered by Juan Ham for Inpatient Admission. Preliminary diagnosis is Major depressive disorder, recurrent, unspecified. - Bed requested for Admit. - Status is Inpatient Admission. ml6 - Condition is Stable. - Problem is new. - Symptoms have improved. Historical: - Allergies: no known allergies; - Home Meds: 1. Percocet Oral 1 tab as needed (Last dose: 10/26/2016 16:00) - PMHx: none; - PSHx: none; - Social history: Smoking status: Patient states was never smoker of tobacco. No barriers to communication noted, The patient speaks fluent Vietnamese. - Family history: Not pertinent. - : The pt / caregiver states he / she is not on anticoagulants. Home medication list is obtained from the patient. - Exposure Risk Screening:: None identified. Vital Signs: 10/26 17:58 BP 187 / 101; Pulse 105; Resp 20; Pulse Ox 97% on R/A; Weight 63.5 kg / 139.99 lbs (R); elp Height 5 ft. 5 in. (165.10 cm) (R); 19:29 BP 167 / 84; Pulse 84; Resp 18; Temp 98.4(O); Pulse Ox 99% on R/A; mgs 10/27 00:13 BP 156 / 74; Pulse 94; Resp 18; Temp 98.0(O); Pulse Ox 97% on R/A; Pain 0/10; rw1 04:38 BP 145 / 75; Pulse 83; Resp 16; Temp 97.7(T); Pulse Ox 96% on R/A; Pain 0/10; rw1 10:09 BP 164 / 78; Pulse 81; Resp 16; Temp 98.1(O); Pulse Ox 98% on R/A; Pain 0/10; ml6 13:41 BP 155 / 83; Pulse 84; Resp 16; Temp 98.3(O); Pulse Ox 98% on R/A; Pain 0/10; ml6 10/26 17:58 Body Mass Index 23.30 (63.50 kg, 165.10 cm) elp MDM: 10/26 19:24 Consult PFS/PSA/Covering Machine Operator Helper ordered. br1 19:24 Consult PFS/PSA/Covering Machine Operator Helper: Patient's case requires discussion with on-call br1 Psychiatrist ordered. 19:24 PSA/PFS to call Nursing Key Person, to enter patient data on [place] Safe Act if patient br1 involuntarily admitted or transferred for SI or HI ordered. 19:24 Confirm accurate psychiatric medication list and times of last dosage ordered. br1 19:24 Detain Pt Until Medically/PFS Cleared ordered. br1 19:24 Recheck B/P ordered. br1 19:24 Oral Temp ordered. br1 19:24 Acetaminophen Level Ordered. EDMS 19:24 Basic Metabolic Profile Ordered. EDMS 19:24 Complete Blood Count Ordered. EDMS 19:24 Drug Eval Toxicology ED Only Ordered. EDMS 19:25 Ethyl Alcohol (ethanol) Ordered. EDMS 19:25 Liver Profile Ordered. EDMS 19:25 Salicylate Level Ordered. EDMS 19:25 Thyroid Stimulating Hormone Ordered. EDMS 19:30 Chest, 2 View (pa\E\lat) Ordered. EDMS 19:30 ECG WITH READING ER PHYS+CARDIAG ordered. EDMS 19:39 TROPONIN Ordered. EDMS 19:41 Financial registration complete. [email or web address] 19:46 [facility] Payment Agreement was scanned into [employer] and attached to record. [email or web address] 20:27 Drug Eval Toxicology ED Only Reviewed. br1 20:39 Acetaminophen Level Reviewed. br1 20:39 Basic Metabolic Profile Reviewed. br1 20:39 Ethyl Alcohol (ethanol) Reviewed. br1 20:39 Salicylate Level Reviewed. br1 20:39 Liver Profile Reviewed. br1 20:39 Thyroid Stimulating Hormone Reviewed. br1 20:39 TROPONIN Reviewed. br1 20:50 Complete Blood Count Reviewed. br1 10/27 05:05 REGULAR DIET PLASTIC STERLING+DIET ordered. EDMS 07:02 Consult PFS/PSA/Covering Machine Operator Helper complete. rb 11:50 Consult PFS/PSA/Covering Machine Operator Helper: Patient's case requires discussion with on-call rb Psychiatrist complete. 11:50 PSA/PFS to call Nursing Key Person, to enter patient data [place] Safe [place] if patient rb involuntarily admitted or transferred for SI or HI complete. 12:00 REGULAR DIET PLASTIC STERLIGN+DIET ordered. EDMS 13:33 Admit to IMHU: ordered. EDMS 13:36 [facility] Legal paperwork was scanned into [employer] and attached to record. cs 10/28 15:15 T-Sheet-- Draft Copy was scanned into [employer] and attached to record. gb 15:16 ECG/EKG was scanned into [employer] and attached to record. gb Signatures: Dispatcher [employer] Aaron Parrish RN RN dwg Newman, Jill New RN GWEN Sandhu, Emelia, PSA PSA rb Sumit Mireles, PSA PSA cs Sudha Machado, Reg Reg gb Mariano Maddox MD MD brMaurice Red RN RN ml6 Maria Guadalupe Mcgill MD MD fg Sorenson, Kimberly, Reg Reg [email or web address] The chart was reviewed and I authenticate all verbal orders and agree with the evaluation and treatment provided.Corrections: (The following items were deleted from the chart) 10/26 19:39 19:30 TROPONIN+LAB ordered. EDMS EDMS Attachments: 19:46 [facility] Payment Agreement [email or web address] 10/28 15:15 T-Sheet-- Draft Copy gb 15:16 ECG/EKG gb Chart Complete MTDD
--- NOTE | 2016-10-29 15:14 | EDDOCDS ---
Nurse's Notes [facility] Name: Neno Chapman Age: 26 yrs Sex: Male : 1990 Arrival Date: 10/26/2016 Time: 17:55 Bed OBSERVATION Private MD: Gaby [facility] Diagnosis: Major depressive disorder, recurrent, unspecified Presentation: 10/26 18:02 Presenting complaint: Patient states: Ingested large amounts of vodka, along with a dwg Percocet, present and states they have had ''problems at home''. Denies suicidal attempt or ideation. Adult Sepsis Screening: The patient does not have new or worsening altered mentation. Patient's respiratory rate is less than 22. Systolic blood pressure is greater than 100. Patient has a qSOFA score of 0- Negative Sepsis Screen. Suicide/Homicide risk assessment- the patient denies having any suicidal and/or homicidal ideations and does not present with any other emotional, behavioral or mental health complaints. Status: The patient is an active duty food service worker hospital. Transition of care: patient was not received from another setting of care. 18:02 Method Of Arrival: Walkin/Carried/Asstd dwg 18:10 Presenting complaint: states: states that during an argument earlier today dwg patient pulled out a pocket knife and threatened to stab self, patient denies saying that. Acuity level changed due to complexity of care. Suicide/Homicide risk assessment- The patient admits to and/or has been reported to be having suicidal ideations. The patient reports that he/she has a recent or current history of substance abuse. 18:10 Acuity: KAYCEE Level 3 [facility] Triage Assessment: 18:08 General: Appears in no apparent distress, Behavior is cooperative. Pain: Denies pain. [facility] 10/27 14:04 HIV screening NA for this visit Offered previously. ml6 Historical: - Allergies: no known allergies; - Home Meds: 1. Percocet Oral 1 tab as needed (Last dose: 10/26/2016 16:00) - PMHx: none; - PSHx: none; - Social history: Smoking status: Patient states was never smoker of tobacco. No barriers to communication noted, The patient speaks fluent Upper Sorbian. - Family history: Not pertinent. - : The pt / caregiver states he / she is not on anticoagulants. Home medication list is obtained from the patient. - Exposure Risk Screening:: None identified. Screenin:29 Screening information is obtained from the patient. Fall risk: No risks identified. sherwin Assistance ADL's: requires no assistance with activities of daily living. Abuse/DV Screen: The patient / caregiver reports he/she is: not in a situation that causes fear, pain or injury. Nutritional screening: No deficits noted. Advance Directives: Currently, there is no health care proxy. There is no active DNR order. There is no living will. There is no Power of [employer]. Advance directive information has not previously been placed in an [facility] medical record. Further advance directive information is declined. home support is adequate. Assessment: 10/26 18:16 General: Direct to room 30, and member from his unit present as escort. Giulia Elliott RN made aware.. 18:55 Reassessment: Dinner tray brought in for patient's child. Shook patient and tried to kcs rouse him - snoring loudly and would not wake up. , child and escort remain at bedside.. 19:28 General: Appears in no apparent distress, Behavior is cooperative. Pain: Location: left mgs clavicle, anterior aspect of left upper chest and left breast Pain currently is 5 out of 10 on a pain scale. Pain does not radiate. Neurological: Level of Consciousness is awake, alert. Cardiovascular: Capillary refill < 3 seconds Heart tones S1 S2 present. Respiratory: Airway is patent Respiratory effort is even, unlabored, Respiratory pattern is regular, symmetrical, Breath sounds are clear bilaterally. Derm: Skin is normal. 20:30 Reassessment: Patient appears in no apparent distress at this time. resting quietly on rw1 stretcher, safety maintained will monitor.. 21:29 Reassessment: Patient appears in no apparent distress at this time. resting quietly on rw1 stretcher, safety maintained will monitor.. 22:24 General: Appears in no apparent distress, comfortable, Behavior is cooperative, quiet, rw1 escorts at bedside at all times and V.O.S outside door. Safety maintained will monitor.. Neurological: No deficits noted. Level of Consciousness is awake, alert, obeys commands, Oriented to person, place, time. Respiratory: Airway is patent Respiratory effort is even, unlabored. Derm: Skin is pink, warm & dry. normal. 23:25 Reassessment: Patient appears in no apparent distress at this time. resting quietly on rw1 stretcher, safety maintained will monitor.. 10/27 00:27 Reassessment: Patient appears in no apparent distress at this time. Patient denies pain rw1 at this time. resting quietly on stretcher with eyes closed, safety maintained will monitor.. 01:29 General: Appears in no apparent distress, comfortable, Behavior is cooperative, Smells sherwin of alcohol. Pain: Denies pain. Neurological: No deficits noted. Level of Consciousness is awake, alert, obeys commands, Oriented to person, place, time, Speech is normal. Respiratory: No deficits noted. Airway is patent Respiratory effort is even, unlabored, Respiratory pattern is regular, symmetrical. Derm: Skin is pink, warm & dry. 02:22 Reassessment: Patient appears in no apparent distress at this time. resting quietly on rw1 stretcher with eyes closed, safety maintained will monitor.. 03:32 Reassessment: Patient appears in no apparent distress at this time. resting quietly on rw1 stretcher, safety maintained will monitor.. 04:38 General: Appears in no apparent distress, comfortable, Behavior is appropriate for age, rw1 cooperative, quiet. Pain: Denies pain. Neurological: Level of Consciousness is awake, obeys commands, Oriented to person, place, time. Respiratory: Airway is patent Respiratory effort is even, unlabored. Derm: Skin is pink, warm & dry. normal. 05:00 General: Appears in no apparent distress, comfortable, Behavior is quiet. Pain: Denies ko2 pain. Neurological: Level of Consciousness is awake, alert, obeys commands. Respiratory: Airway is patent Respiratory effort is even, unlabored, Respiratory pattern is regular, symmetrical. Derm: Skin is normal. 05:31 Reassessment: Patient appears in no apparent distress at this time. resting quietly on rw1 stretcher, safety maintained will monitor.. 06:23 General: Appears in no apparent distress, comfortable, Behavior is resting quietly on rw1 stretcher with escort at bedside, safety maintained. Respiratory: Airway is patent Respiratory effort is even, unlabored. Derm: Skin is pink, warm & dry. normal. 07:45 Reassessment: Patient appears in no apparent distress at this time. sleeping, kr3 respirations unlabored. Derm: Skin is normal. 08:37 Reassessment: Patient appears in no apparent distress at this time. awaiting PSA kr3 evaluation. 09:10 General: Appears in no apparent distress, comfortable, Behavior is appropriate for age, ml6 cooperative. Pain: Denies pain. Neurological: No deficits noted. Level of Consciousness is awake, alert, Oriented to person, place, time. Cardiovascular: No deficits noted. Capillary refill < 3 seconds is brisk in bilateral fingers toes Heart tones S1 S2 present. Respiratory: No deficits noted. Airway is patent Respiratory effort is even, unlabored, Respiratory pattern is regular, symmetrical, Breath sounds are clear bilaterally. 10:12 Reassessment: Patient appears in no apparent distress at this time. Patient denies pain ml6 at this time. Patient states symptoms have improved. no change from previous assessment, patient awaiting disposition. 11:15 Reassessment: Patient appears in no apparent distress at this time. Patient denies pain ml6 at this time. Patient states symptoms have improved. patient sitting in room speaking with chain of command. 12:20 General: Appears in no apparent distress, comfortable, Behavior is appropriate for age, ml6 cooperative. Pain: Denies pain. Location: right eye and left eye Pain currently is 5 out of 10 on a pain scale. Pain does not radiate. Quality of pain is described as aching, Pain began 2-3 days ago Is continuous. Neurological: No deficits noted. Cardiovascular: No deficits noted. Capillary refill < 3 seconds is brisk in bilateral fingers toes Heart tones S1 S2 present. Respiratory: No deficits noted. Airway is patent Respiratory effort is even, unlabored, Respiratory pattern is regular, symmetrical, Breath sounds are clear bilaterally. GI: No deficits noted. 13:30 Reassessment: Patient appears in no apparent distress at this time. Patient denies pain ml6 at this time. Patient states symptoms have improved. 14:03 General: Appears in no apparent distress, Behavior is appropriate for age, cooperative. ml6 Pain: Denies pain. Neurological: No deficits noted. Level of Consciousness is awake, alert, Oriented to person, place, time. Cardiovascular: No deficits noted. Capillary refill < 3 seconds is brisk in bilateral fingers toes. Respiratory: No deficits noted. Airway is patent Respiratory effort is even, unlabored, Respiratory pattern is regular, symmetrical. Mental Health Eval: 10:06 Mental health consult is initiated at 09:10. 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 [facility] Behavioral Health: The patient is not an established patient of [facility] Behavioral Health. 10:35 Referral Information: Evaluation referral is generated by a relative; spouse, and Escort. The patient was referred for evaluation because Pt presented to ED after Pt stated +SI. Pt presented +ETOH, is now sober. Pt reported "Made a poor decision yesterday, I started drinking and I over drank". According to Pt, of 3 years wants a divorce, but currently living in same house. Pt admitted to fleeting thoughts of SI, more often when "I feel like I can't complete a task or increase sense of failure". Pt stated "My and Son's life would be better if I wasn't around anymore". According to , They had an argument, PT was intoxicated, stated"no one cares" and took out his knife as he walked away. called MPs. Pt reported currently in [place] PT program to prepare for [employer]. . Subjective: The patients chief complaint is Depressed, +SI, unknown plan.. Delusions are denied. Patient's mood is dysphoric, hopeless, Hallucinations are denied. Mental Health history: alcohol abuse, depression, suicide gesture by hanging. reported Pt made a SI gesture a year ago, while in [facility], by hanging a rope in the garage with intent to hang himself. stopped him. Police were called but never showed up according to . Mental Health Admissions: None. Current Outpatient Mental Health Services: None. Pt stated completed [facility] on [place]. Was sober for 117 days after completing the program then started drinking again. . Current living environment is The patient currently lives with his / her spouse, and 2y/o son.. Patient presents to Emergency Department with the following symptoms within the past 2 weeks: alcohol abuse, depressed mood, feelings of helplessness/hopelessness, marital problem, poor impulse control, suicidal ideation with plan for unknown. Substance abuse: Patient uses of liquor, 1/2 liter. Mental status exam: Patients appearance is appropriate, Patient's behavior is cooperative, minimally responsive Speech is unspontaneous Affect is flat. Mood is dysphoric. Hallucinations are denied. Appetite is normal. Memory is good. Energy level is normal. Content of thought is depressive. , Thought process is characterized by flight of ideas. Cognitive level is oriented to person, place, time and situation Patient's insight is poor. Judgement is poor. Rapport with interviewer is good. guarded. Suicidal Ideation present with a plan to kill self by unknown. Homicidal ideation is not present. Disposition: Medically cleared for disposition by Maurice Leija DO Psychiatric Consult is performed by phone with Dr Alyssa Denis. [facility] Admission Criteria: The patient is experiencing suicidal ideation. The patient displays symptoms of severe psychiatric disorder resulting in disordered behavior and significant interference with his / her ability to maintain self care. The patient requires continuous observation and/or control to protect self, others or property. The patient's care requires a multi-modal treatment plan under close supervision and coordination due to the complexity and severity of the patient's symptoms. Legal Status: Patient's legal status will be Emergency admission: . [place] Safe Act: [place] Safe Act is applicable to this patient. The patient poses a risk to self or other and the Nursing Syruper has been notified. He/She will enter the patient's data. Insurance Pre-Certification: Not Required. 14:02 DSM-V Differential Diagnosis: Unspecified Depressive Disorder (F32.9). Narrative: Pt rb legals placed with belongings. Vital Signs: 10/26 17:58 BP 187 / 101; Pulse 105; Resp 20; Pulse Ox 97% on R/A; Weight 63.5 kg (R); Height 5 ft. elp 5 in. (165.10 cm) (R); 19:29 BP 167 / 84; Pulse 84; Resp 18; Temp 98.4(O); Pulse Ox 99% on R/A; mgs 10/27 00:13 BP 156 / 74; Pulse 94; Resp 18; Temp 98.0(O); Pulse Ox 97% on R/A; Pain 0/10; rw1 04:38 BP 145 / 75; Pulse 83; Resp 16; Temp 97.7(T); Pulse Ox 96% on R/A; Pain 0/10; rw1 10:09 BP 164 / 78; Pulse 81; Resp 16; Temp 98.1(O); Pulse Ox 98% on R/A; Pain 0/10; ml6 13:41 BP 155 / 83; Pulse 84; Resp 16; Temp 98.3(O); Pulse Ox 98% on R/A; Pain 0/10; ml6 10/26 17:58 Body Mass Index 23.30 (63.50 kg, 165.10 cm) elp Vitals: 10/26 17:58 Log In Time: October 26, 2016 at 17:56. RN notified that patient meets Red Flag elp criteria. ED Course: 17:56 Patient visited by Jasmin Lynn PCA. elp 17:56 Patient moved to Waiting elp 17:58 Gaby [facility] [place] Private Physician. elp 17:59 Patient visited by Jasmin Lynn PCA. elp 18:06 Triage Initiated dwg 18:12 Patient moved to 30 dwg 18:20 Patient visited by Don Angel. dem1 18:35 Patient visited by Don Angel. dem1 18:50 Patient visited by Don Angel. dem1 19:05 Mariano Maddox MD is Attending Physician. br1 19:15 Pt greeted and oriented to ED. Patient advised of names of staff involved in care, kb5 location of call salgado, wait times and NPO status. Accompanied by Significant Other, and Escort, Patient has correct armband on for positive identification. Placed in psych safe attire. Bed in low position. Call light in reach. Side rails up X 1. Security observing. Property removed, given to SO, per patient request. Psych Safety Check: Location: Medical Room. Visual Assessment: Cooperative. 19:22 Patient visited by Mariano Maddox MD. br1 19:30 Patient visited by Maurice Yu RN. mgs 19:30 Psych Safety Check: Location: Medical Room. Visual Assessment: Cooperative. kb5 19:45 Psych Safety Check: Location: Medical Room. Visual Assessment: Cooperative. kb5 19:46 [facility] [place] was scanned into [email or web address] and attached to record. ks16 19:47 Patient visited by Renny Renteria PCA. kb5 19:53 Patient visited by Renny Renteria PCA. kb5 20:00 Psych Safety Check: Location: Medical Room. Visual Assessment: Cooperative. kb5 20:00 EKG done. (by ED staff). Reviewed by Mariano Maddox MD. kb5 20:15 Psych Safety Check: Location: Medical Room. Visual Assessment: Cooperative. kb5 20:21 Patient visited by Rudy Renteriaopher PHYSICAL THERAPIST CLINIC DIRECTOR. kb5 20:30 Psych Safety Check: Location: Medical Room. Visual Assessment: Cooperative. kb5 20:32 Patient visited by Rudy Renteriaopher, PHYSICAL THERAPIST CLINIC DIRECTOR. kb5 20:45 Psych Safety Check: Location: Medical Room. Visual Assessment: Cooperative. kb5 20:50 Patient visited by Rudy Renteriaopher PHYSICAL THERAPIST CLINIC DIRECTOR. kb5 21:00 Psych Safety Check: Location: Medical Room. Visual Assessment: Cooperative. kb5 21:06 Patient visited by Tl Renteriaer PHYSICAL THERAPIST CLINIC DIRECTOR. kb5 21:15 Psych Safety Check: Location: Medical Room. Visual Assessment: Cooperative. kb5 21:17 Patient visited by Renny Renteria PHYSICAL THERAPIST CLINIC DIRECTOR. kb5 21:29 Gerry Paula LPN is Primary Nurse. rw1 21:30 Psych Safety Check: Location: Medical Room. Visual Assessment: Cooperative. kb5 21:36 Patient visited by Renny Renteria PHYSICAL THERAPIST CLINIC DIRECTOR. kb5 21:45 Psych Safety Check: Location: Medical Room. Visual Assessment: Cooperative. kb5 21:51 Patient visited by Gerry Paula LPN. rw1 22:00 Psych Safety Check: Location: Medical Room. Visual Assessment: Cooperative. kb5 22:05 Patient visited by Gerry Paula LPN. rw1 22:15 Psych Safety Check: Location: Medical Room. Visual Assessment: Cooperative. kb5 22:21 Patient visited by Tl Renteriaer PHYSICAL THERAPIST CLINIC DIRECTOR. kb5 22:30 Psych Safety Check: Location: Medical Room. Visual Assessment: Cooperative. kb5 22:42 Patient visited by Tl Renteriaer PHYSICAL THERAPIST CLINIC DIRECTOR. kb5 22:45 Psych Safety Check: Location: Medical Room. Visual Assessment: Cooperative. kb5 23:00 Patient visited by Rudy Renteriaopher PHYSICAL THERAPIST CLINIC DIRECTOR. kb5 23:00 Psych Safety Check: Location: Medical Room. Visual Assessment: Cooperative. kb5 23:15 Patient visited by Rudy Renteriaopher PHYSICAL THERAPIST CLINIC DIRECTOR. kb5 23:15 Psych Safety Check: Location: Medical Room. Visual Assessment: Cooperative. kb5 23:30 Patient visited by Gerry Paula LPN. rw1 23:30 Psych Safety Check: Location: Medical Room. Visual Assessment: Cooperative. kb5 23:45 Patient visited by Gerry Paula LPN. rw1 23:45 Psych Safety Check: Location: Medical Room. Visual Assessment: Cooperative. kb5 10/27 00:00 Psych Safety Check: Location: Medical Room. Visual Assessment: Cooperative. kb5 00:01 Patient visited by Renny Renteria PCA. kb5 00:08 Attending Physician role handed off by Mariano Maddox MD mm11 00:08 Maurice Leija DO is Attending Physician. mm11 00:15 Psych Safety Check: Location: Medical Room. Visual Assessment: Cooperative. kb5 00:16 Patient visited by Renny Renteria PCA. kb5 00:30 Psych Safety Check: Location: Medical Room. Visual Assessment: Cooperative. kb5 00:31 Patient visited by Renny Renteria PCA. kb5 00:45 Psych Safety Check: Location: Medical Room. Visual Assessment: Cooperative. kb5 00:49 Patient visited by Renny Renteria PCA. kb5 01:00 Psych Safety Check: Location: Medical Room. Visual Assessment: Cooperative. kb5 01:10 Patient visited by Renny Renteria PCA. kb5 01:15 Patient visited by Renny Renteria PCA. kb5 01:15 Psych Safety Check: Location: Medical Room. Visual Assessment: Cooperative. kb5 01:29 The patient / caregiver is instructed regarding the plan of care and ED course. Patient sherwin has correct armband on for positive identification. Placed in psych safe attire. Bed in low position. Call light in reach. Side rails up X 1. Security observing. 01:29 No IV's were initiated during this patient's visit. No procedures done that require sherwin assistance. 01:30 Patient visited by Renny Renteria PCA. kb5 01:30 Psych Safety Check: Location: Medical Room. Visual Assessment: Cooperative. kb5 01:45 Patient visited by Renny Renteria PCA. kb5 01:45 Psych Safety Check: Location: Medical Room. Visual Assessment: Cooperative. kb5 01:56 Chest, 2 View (pa\\E\\lat) Returned. EDMS 02:00 Patient visited by Renny Renteria PCA. kb5 02:00 Psych Safety Check: Location: Medical Room. Visual Assessment: Cooperative. kb5 02:15 Patient visited by Renny Renteria PCA. kb5 02:15 Psych Safety Check: Location: Medical Room. Visual Assessment: Cooperative. kb5 02:30 Patient visited by Renny Renteria PCA. kb5 02:30 Psych Safety Check: Location: Medical Room. Visual Assessment: Cooperative. kb5 02:35 Patient moved to [facility] sep 02:47 Patient visited by Gerry Paula LPN. rw1 02:59 Patient visited by Antonio Gloria. tr 03:16 Patient visited by Antonio Gloria. tr 03:28 Patient visited by Antonio Gloria. tr 03:46 Patient visited by Antonio Gloria. tr 04:02 Patient visited by Antonio Gloria. tr 04:18 Patient visited by Antonio Gloria. tr 04:44 Patient visited by Antonio Gloria. tr 05:00 Patient visited by Antonio Gloria. tr 05:17 Patient visited by Antonio Gloria. tr 05:29 Patient visited by Antonio Gloria. tr 05:40 Patient moved to [facility]11 05:48 Patient visited by Antonio Gloria. tr 06:00 Patient visited by Antonio Gloria. tr 06:46 Patient visited by Antonio Gloria. tr 07:00 Patient visited by Antonio Gloria. tr 07:08 Patient visited by Louis Ramirez Security Aide. pjf 07:17 Patient visited by Louis Ramirez Security Aide. pjf 07:34 Patient visited by Louis Ramirez Security Aide. pjf 07:45 Primary Nurse role handed off by Gerry Paula LPN kr3 08:22 Patient visited by Louis Ramirez Security Aide. pjf 08:35 Patient visited by Louis Ramirez Security Aide. pjf 08:45 Patient visited by Louis Ramirez Security Aide. pjf 08:58 Patient visited by Louis Ramirez Security Aidonur. pjf 09:15 Patient visited by Louis Ramirez Security Aidonur. pjf 09:30 Patient visited by Louis Ramirez Security Aide. pjf 09:58 Patient visited by Maurice Verdin RN. ml6 10:17 Patient visited by Louis Ramirez Security Aidonur. pjf 10:44 Patient visited by Louis Ramirez Security Aidonur. pjf 10:54 Patient visited by Louis Ramirez Security Aide. pjf 11:02 Psych Safety Check: Location: Psych Room. Visual Assessment: Cooperative. tmm1 11:16 Psych Safety Check: Location: Psych Room. Visual Assessment: Cooperative. tmm1 11:34 Psych Safety Check: Location: Psych Room. Visual Assessment: Cooperative. tmm1 12:03 Psych Safety Check: Location: Psych Room. Visual Assessment: Cooperative. tmm1 12:20 Psych Safety Check: Location: Psych Room. Visual Assessment: Cooperative. tmm1 12:34 Psych Safety Check: Location: Psych Room. Visual Assessment: Cooperative. tmm1 12:50 Psych Safety Check: Location: Psych Room. Visual Assessment: Cooperative. tmm1 13:11 Psych Safety Check: Location: Psych Room. Visual Assessment: Cooperative. tmm1 13:33 Psych Safety Check: Location: Psych Room. Visual Assessment: Cooperative. tmm1 13:36 [facility] Legal paperwork was scanned into [email or web address] and attached to record. cs 13:48 Psych Safety Check: Location: Psych Room. Visual Assessment: Cooperative. tmm1 14:04 Psych Safety Check: Location: Psych Room. Visual Assessment: Cooperative. tmm1 14:10 Juan Ham MD is Hospitalizing Provider. fg 10/28 15:15 T-Sheet-- Draft Copy was scanned into [email or web address] and attached to record. gb 15:16 ECG/EKG was scanned into [email or web address] and attached to record. gb Attachments: 10/27 13:36 [facility] Legal paperwork cs Order Results: Lab Order: Acetaminophen Level; SPEC'M 10/26/16 19:49 Test: ACETAMINOPHEN LEVEL; Value: < 2.0; Range: 10.0-30.0; Abnormal: Below low normal; Units: UG/ML; Status: F Lab Order: Basic Metabolic Profile; SPEC'M 10/26/16 19:49 Test: GLUCOSE, FASTING; Value: 97; Range: 70-105; Units: MG/DL; Status: F Test: BLOOD UREA NITROGEN; Value: 11; Range: 7-18; Units: MG/DL; Status: F Test: CREATININE FOR GFR; Value: 1.15; Range: 0.70-1.30; Units: MG/DL; Status: F Test: GLOMERULAR FILTRATION RATE; Value: > 60.0; Range: >60; Status: F Test: SODIUM LEVEL; Value: 146; Range: 136-145; Abnormal: Above high normal; Units: MEQ/L; Status: F Test: POTASSIUM SERUM; Value: 3.6; Range: 3.5-5.1; Units: MEQ/L; Status: F Test: CHLORIDE LEVEL; Value: 108; Range: 98-107; Abnormal: Above high normal; Units: MEQ/L; Status: F Test: CARBON DIOXIDE LEVEL; Value: 28; Range: 21-32; Units: MEQ/L; Status: F Test: ANION GAP; Value: 10; Range: 8-16; Units: MEQ/L; Status: F Test: CALCIUM LEVEL; Value: 8.8; Range: 8.5-10.1; Units: MG/DL; Status: F Test Note: ; Units are mL/min/1.73 m2 Chronic Kidney Disease Staging per NKF: Stage I & II GFR >=60 Normal to Mildly Decreased Stage III GFR 30-59 Moderately Decreased Stage IV GFR 15-29 Severely Decreased Stage V GFR <15 Very Little GFR Left ESRD GFR <15 on CAR CLEANER Lab Order: Complete Blood Count; [facility] 10/26/16 19:49 Test: WHITE BLOOD COUNT; Value: 6.6; Range: 4.0-10.0; Units: K/mm3; Status: F Test: RED BLOOD COUNT; Value: 5.44; Range: 4.30-6.10; Units: M/mm3; Status: F Test: HEMOGLOBIN; Value: 16.3; Range: 14.0-18.0; Units: g/dl; Status: F Test: HEMATOCRIT; Value: 47.5; Range: 42.0-52.0; Units: %; Status: F Test: MEAN CORPUSCULAR VOLUME; Value: 87.3; Range: 80.0-96.0; Units: fl; Status: F Test: MEAN CORPUSCULAR HEMOGLOBIN; Value: 30.0; Range: 27.0-33.0; Units: pg; Status: F Test: MEAN CORPUSCULAR HGB CONC; Value: 34.4; Range: 32.0-36.5; Units: g/dl; Status: F Test: RED CELL DISTRIBUTION WIDTH; Value: 12.5; Range: 11.5-14.5; Units: %; Status: F Test: PLATELET COUNT, AUTOMATED; Value: 230; Range: 150-450; Units: k/mm3; Status: F Lab Order: Drug Eval Toxicology ED Only; SPEC'M 10/26/16 19:49 Test: AMPHETAMINES LEVEL URINE; Value: NEGATIVE; Range: NEGATIVE; Status: F Test: BARBITURATES URINE; Value: NEGATIVE; Range: NEGATIVE; Status: F Test: BENZODIAZEPINES URINE; Value: NEGATIVE; Range: NEGATIVE; Status: F Test: CANNABINOIDS URINE; Value: NEGATIVE; Range: NEGATIVE; Status: F Test: COCAINE METABOLITE URINE; Value: NEGATIVE; Range: NEGATIVE; Status: F Test: METHADONE URINE; Value: NEGATIVE; Range: NEGATIVE; Status: F Test: OPIATES URINE; Value: NEGATIVE; Range: NEGATIVE; Status: F Test: TRICYCLIC ANTIDEPRESS URINE; Value: NEGATIVE; Range: NEGATIVE; Status: F Test Note: ; ALL PRESUMPTIVE POSITIVE FINDINGS ARE UNCONFIRMED NORMAL VALUES THRESHOLD IN NG/ML AMPHETAMINES 1000 METHAMPHETAMINES 1000 BARBITURATES 300 BENZODIAZEPINES 300 CANNABINOIDS (THC) 50 COCAINE METABOLITE 300 METHADONE 300 OPIATES 300 PHENCYCLIDINE 25 TRICYCLIC ANTIDEPRESSANTS 1000 RESULTS ARE FOR MEDICAL PURPOSES ONLY. ALL URINE SPECIMENS WILL BE SAVED FOR 3 DAYS. IF CONFIRMATION OF A PRESUMPTIVE POSTIVE SCREEN RESULT IS DESIRED, CALL CHEMISTRY ([phone]) AND REQUEST URINE TO BE SENT TO REFERENCE LAB. FOR A LIST OF CLOSELY RELATED COMPOUNDS PLEASE CALL THE LAB. Lab Order: Ethyl Alcohol (ethanol); SPEC'M 10/26/16 19:49 Test: ETHYL ALCOHOL (ETHANOL); Value: 0.314; Range: 0.000-0.010; Abnormal: Above high normal; Units: %; Status: F Lab Order: Liver Profile; SPEC'M 10/26/16 19:49 Test: AST/SGOT; Value: 25; Range: 15-37; Units: U/L; Status: F Test: ALT/SGPT; Value: 30; Range: 12-78; Units: U/L; Status: F Test: ALKALINE PHOSPHATASE; Value: 92; Range: 45-117; Units: U/L; Status: F Test: BILIRUBIN,TOTAL; Value: 0.3; Range: 0.2-1.0; Units: MG/DL; Status: F Test: BILIRUBIN,DIRECT; Value: < 0.1; Range: 0.0-0.2; Units: MG/DL; Status: F Test: TOTAL PROTEIN; Value: 8.2; Range: 6.4-8.2; Units: GM/DL; Status: F Test: ALBUMIN; Value: 4.5; Range: 3.2-5.2; Units: GM/DL; Status: F Test: ALBUMIN/GLOBULIN RATIO; Value: 1.22; Range: 1.00-1.93; Status: F Lab Order: Salicylate Level; SPEC'M 10/26/16 19:49 Test: SALICYLATE LEVEL; Value: < 1.7; Range: 5.0-30.0; Abnormal: Below low normal; Units: MG/DL; Status: F Lab Order: Thyroid Stimulating Hormone; SPEC'M 10/26/16 19:49 Test: THYROID STIMULATING HORMONE; Value: 0.358; Range: 0.358-3.740; Units: uIU/ML; Status: F Lab Order: TROPONIN; SPEC'M 10/26/16 19:49 Test: TROPONIN I; Value: < 0.02; Range: < 0.10; Units: NG/ML; Status: F Test Note: ; Troponin I Reference Interval for OneTouch LOCI: 99th Percentile= 0.00-0.045 ng/ml Risk Stratification: <= 0.10 ng/ml Decreased Risk for Adverse Clinical Events. 0.10-1.50 ng/ml Increased Risk for Adverse Clinical Events. Evaluation of additional criterion and/or repeat testing in 2-6 hours is suggested to rule out myocardial damage. >= 1.50 ng/ml Indicative of Myocardial Injury. Radiology Order: Chest, 2 View (pa\\E\\lat) Test: Chest, 2 View (pa\\E\\lat) REASON FOR EXAMINATION: Chest Pain; Clinical: Acute chest pain .; ; Comparison: None .; ; Technique: PA and lateral.; ; Findings:; The mediastinum and cardiac silhouette are normal. The lung john are clear and; without acute consolidation, effusion, or pneumothorax. The skeletal structures; are intact and normal.; ; Impression:; 1. No acute cardiopulmonary process.; ; ; Signed by; Hamilton Camacho MD 10/27/2016 01:33 A; Outcome: 10/27 14:03 Discharge Assessment: patient administered narcotics - no. The following High Risk ml6 Discharge criteria are identified: None. Admitted to Psych accompanied by tech, via wheelchair, with chart. Condition: stable. No special radiology studies were completed. 14:11 Decision to Hospitalize by Provider. fg 14:13 Patient left the ED. ml6 Signatures: Dispatcher [employer] EDMS aMrlee Regalado, RN Jayla Flynn RN Aaron Franklin RN Yvonne Isidro RN GWEN Sandhu, Emelia, PSA PSA rb Sumit Mireles, PSA PSA cs Sudha Machado, Reg Reg gb Fermeryzo, Louis, Security Aide Securf Gloria, Antonio tr Leah London,RN RN kr3 Gerry Paula,PROTEOMICS SCIENTIST PROTEOMICS SCIENTIST rw1 Renny Renteria, PHYSICAL THERAPIST CLINIC DIRECTOR PHYSICAL THERAPIST CLINIC DIRECTOR kb5 Maurice Leija, DO DO mm11 Mariano Maddox MD MD brMaurice Red, RN RN ml6 Don Angel dem1 Alisa Moore, PHYSICAL THERAPIST CLINIC DIRECTOR PHYSICAL THERAPIST CLINIC DIRECTOR tmm1 Jasmin Lynn, PHYSICAL THERAPIST CLINIC DIRECTOR PHYSICAL THERAPIST CLINIC DIRECTOR elp Rose Marie Garcia,RN RN ko2 Maurice Yu,RN RN Maria Guadalupe Sandy MD MD fg Sorenson, Kimberly, Reg Reg [email or web address] Corrections: (The following items were deleted from the chart) 10/26 18:12 18:02 Acuity: KAYCEE Level 3 [facility] 20:21 19:30 Psych Safety Check: Location: Psych Room. Visual Assessment: madan Huynh kb5 20:21 19:45 Psych Safety Check: Location: Psych Room. Visual Assessment: madan Huynh kb5 10/27 03:32 03:29 Reassessment: Patient appears in no apparent distress at this time. resting rw1 quietly on stretcher, safety maintained will monitor.. kmg1 Chart Complete MTDD
--- NOTE | 2016-10-29 15:14 | EDDOCDS ---
Physician Documentation [facility] Name: Neno Chapman Age: 26 yrs Sex: Male : 1990 Arrival Date: 10/26/2016 Time: 17:55 Bed OBSERVATION Private MD: Gaby [facility] [place]: 10/27/16 14:11 Hospitalization ordered by Juan Ham for Inpatient Admission. Preliminary diagnosis is Major depressive disorder, recurrent, unspecified. - Bed requested for Admit. - Status is Inpatient Admission. ml6 - Condition is Stable. - Problem is new. - Symptoms have improved. Historical: - Allergies: no known allergies; - Home Meds: 1. Percocet Oral 1 tab as needed (Last dose: 10/26/2016 16:00) - PMHx: none; - PSHx: none; - Social history: Smoking status: Patient states was never smoker of tobacco. No barriers to communication noted, The patient speaks fluent Kiswahili. - Family history: Not pertinent. - : The pt / caregiver states he / she is not on anticoagulants. Home medication list is obtained from the patient. - Exposure Risk Screening:: None identified. Vital Signs: 10/26 17:58 BP 187 / 101; Pulse 105; Resp 20; Pulse Ox 97% on R/A; Weight 63.5 kg / 139.99 lbs (R); elp Height 5 ft. 5 in. (165.10 cm) (R); 19:29 BP 167 / 84; Pulse 84; Resp 18; Temp 98.4(O); Pulse Ox 99% on R/A; mgs 10/27 00:13 BP 156 / 74; Pulse 94; Resp 18; Temp 98.0(O); Pulse Ox 97% on R/A; Pain 0/10; rw1 04:38 BP 145 / 75; Pulse 83; Resp 16; Temp 97.7(T); Pulse Ox 96% on R/A; Pain 0/10; rw1 10:09 BP 164 / 78; Pulse 81; Resp 16; Temp 98.1(O); Pulse Ox 98% on R/A; Pain 0/10; ml6 13:41 BP 155 / 83; Pulse 84; Resp 16; Temp 98.3(O); Pulse Ox 98% on R/A; Pain 0/10; ml6 10/26 17:58 Body Mass Index 23.30 (63.50 kg, 165.10 cm) elp MDM: 10/26 19:24 Consult PFS/PSA/Pipe Turner ordered. br1 19:24 Consult PFS/PSA/Pipe Turner: Patient's case requires discussion with on-call br1 Psychiatrist ordered. 19:24 PSA/PFS to call Nursing Terminal Worker, to enter patient data on [place] Safe Act if patient br1 involuntarily admitted or transferred for SI or HI ordered. 19:24 Confirm accurate psychiatric medication list and times of last dosage ordered. br1 19:24 Detain Pt Until Medically/PFS Cleared ordered. br1 19:24 Recheck B/P ordered. br1 19:24 Oral Temp ordered. br1 19:24 Acetaminophen Level Ordered. EDMS 19:24 Basic Metabolic Profile Ordered. EDMS 19:24 Complete Blood Count Ordered. EDMS 19:24 Drug Eval Toxicology ED Only Ordered. EDMS 19:25 Ethyl Alcohol (ethanol) Ordered. EDMS 19:25 Liver Profile Ordered. EDMS 19:25 Salicylate Level Ordered. EDMS 19:25 Thyroid Stimulating Hormone Ordered. EDMS 19:30 Chest, 2 View (pa\E\lat) Ordered. EDMS 19:30 ECG WITH READING ER PHYS+CARDIAG ordered. EDMS 19:39 TROPONIN Ordered. EDMS 19:41 Financial registration complete. [email or web address] 19:46 [facility] Payment Agreement was scanned into [employer] and attached to record. [email or web address] 20:27 Drug Eval Toxicology ED Only Reviewed. br1 20:39 Acetaminophen Level Reviewed. br1 20:39 Basic Metabolic Profile Reviewed. br1 20:39 Ethyl Alcohol (ethanol) Reviewed. br1 20:39 Salicylate Level Reviewed. br1 20:39 Liver Profile Reviewed. br1 20:39 Thyroid Stimulating Hormone Reviewed. br1 20:39 TROPONIN Reviewed. br1 20:50 Complete Blood Count Reviewed. br1 10/27 05:05 REGULAR DIET PLASTIC STERLING+DIET ordered. EDMS 07:02 Consult PFS/PSA/Pipe Turner complete. rb 11:50 Consult PFS/PSA/Pipe Turner: Patient's case requires discussion with on-call rb Psychiatrist complete. 11:50 PSA/PFS to call Nursing Terminal Worker, to enter patient data on [place] Safe Act if patient rb involuntarily admitted or transferred for SI or HI complete. 12:00 REGULAR DIET PLASTIC STERLING+DIET ordered. EDMS 13:33 Admit to IMHU: ordered. EDMS 13:36 [facility] Legal paperwork was scanned into [employer] and attached to record. cs 10/28 15:15 T-Sheet-- Draft Copy was scanned into [employer] and attached to record. gb 15:16 ECG/EKG was scanned into [employer] and attached to record. gb Signatures: Dispatcher [employer] Aaron Parrish RN RN dwg Newman, Jill New RN GWEN Sandhu, Emelia, PSA PSA rb Sumit Mireles, PSA PSA cs Sudha Machado, Reg Reg gb Mariano Maddox MD MD brMaurice Red RN RN ml6 Maria Guadalupe Mcgill MD MD fg Sorenson, Kimberly, Reg Reg [email or web address] The chart was reviewed and I authenticate all verbal orders and agree with the evaluation and treatment provided.Corrections: (The following items were deleted from the chart) 10/26 19:39 19:30 TROPONIN+LAB ordered. EDMS EDMS Attachments: 19:46 [facility] Payment Agreement [email or web address] 10/28 15:15 T-Sheet-- Draft Copy gb 15:16 ECG/EKG gb Chart Complete MTDD
[2016-10-29 18:00] VITALS: BP 128/58
[2016-10-30 06:00] VITALS: BP 105/51
--- NOTE | 2016-10-30 06:35 | IPN ---
DATE OV VISIT: 10/29/2016 CHIEF COMPLAINT: Feels a bit better. SUBJECTIVE: Seen in followup. Indicates he feel a bit better, concerned related to his drinking, says he has been able to see the impact this has had on his marriage. Says his wishes for a separation, rather than a divorce. MENTAL STATUS EXAMINATION: Neat and cooperative. No agitation. No psychomotor retardation. He is coherent. Affect is restricted but reactive. Denies any thoughts of harming himself or anyone else. No evidence of psychosis. Cognition grossly intact. Judgment possibly somewhat improved, insight fair. ASSESSMENT: 1. Alcohol use disorder. 2. Consider induced mood disorder. PLAN: Continue current care. Will obtain collateral information. Discontinue the bupropion, I do not see an imperative need for his being on that antidepressant at this point. Encourage participation in all activities in the unit, he will be seeing his assigned psychiatrist tomorrow, so discharge planning can continue as well.
--- NOTE | 2016-10-30 07:29 | HPE ---
DATE OF ADMISSION: 10/27/2016 HISTORY OF PRESENT ILLNESS: Please refer to the psychiatric history and evaluation for further details on this admission. This examination and history is intended for medical issues which may need treatment, followup or consultation on this 26-year-old male. ALLERGIES: No known allergies. 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 ETOH: He has a history of alcohol abuse. He completed [employer] [facility] on [place] [place]. He was sober for 117 days and then he started drinking again in June. He is drinking at least 3-4 mixed drinks on the weekend. Smokes: None. Recreational drug use: None. PAST MEDICAL HISTORY: Negative. PAST SURGICAL HISTORY: Negative. HOME MEDICATIONS: None. He has had the flu vaccine. LABORATORY STUDIES: CBC was normal. Sodium 146, potassium 3.6, chloride 108, BUN 11, creatinine 1.1. ETOH was 0.314. Chest x-ray showed no acute pulmonary problems. REVIEW OF SYSTEMS: 10-systems review was done and was unremarkable. PHYSICAL EXAMINATION: A 26-year-old cooperative male, in no acute distress. Height is 65 inches, weight is 70 kg, body mass index (BMI) 25.8. Blood pressure was 129/62, pulse 60, respirations 16, temperature 98. The patient is alert and oriented times three. Pupils equal and reactive to light. Extraocular movements intact. Cornea and sclera clear. Conjunctiva normal. No facial asymmetry. Pharynx, tongue, and gums pink and moist. Tongue is midline. Neck is supple, without lymphadenopathy. No thyromegaly. No goiter Chest clear to auscultation without wheeze or retraction. Heart is regular. Abdomen benign. Bowel sounds positive. /Rectal: Not done. Extremities show equal strength. Full range of motion. No cyanosis, clubbing or edema. Peripheral pulses equal and palpable bilaterally. Skin is warm and dry. IMPRESSION AND PLAN: Psychiatric: Plan per psychiatry. No acute medical issues.
--- NOTE | 2016-10-30 15:51 | IPNPDOC ---
[facility] Progress Note Progress Note DATE OF SERVICE: 10/30/16 Subjective: Patient calm and cooperative with interview. He reports marital discord led to increased alcohol abuse. He now is focused on sobriety and making his marriage work. He denies SI.HI. and denies AH. Objective: VITALS - see below. LABS - see below. MENTAL STATUS EXAMINATION: cooperative overall, He is coherent. Good eye contact. His affect is restricted in range. He denies any active suicidal thoughts or intent. No homicidal ideas or intent. Currently, no evidence of any psychosis. His cognition is grossly intact. Intellect is average. Judgment and insight are fair. ASSESSMENT: depressive d/o, unspecified Alcohol use disorder. Has been depressed, stressed, particularly secondary to his difficulties with alcohol, and the impact this has made on his marriage. It is not convincing that he has a major depressive episode. PLAN: He is admitted to the inpatient psychiatry unit, placed on relevant precautions. -[facility] outpt referral. -Patient declines AD therapy. Vital Signs Vital Signs Date Time Temp Pulse Resp B/P Pulse Ox O2 Delivery O2 Flow Rate FiO2 10/30/16 06:00 97.1 57 17 105/51 10/27/16 14:29 98 Room Air Current Medications Current Medications Acetaminophen (Tylenol Tab) 650 mg Q6HP PRN PO HEADACHE or DISCOMFORT; Start at 15:15; Stop 11/26/16 at 15:14 Al Hydrox/Mg Hydrox/Simethicone (Mylanta) 30 ml Q4HP PRN PO HEARTBURN/ INDIGESTION; Start 10/27/16 at 15:15; Stop 11/26/16 at 15:14 Bupropion HCl (Wellbutrin) 75 mg QAM PO Last administered on 10/29/16t 09:30; Start 10/28/16 at 09:00; Stop 10/29/16 at 12:58; Status DC Home Med (Med Rec Complete!) ASDIRECTED XX ; Start 10/27/16 at 16:15; Stop 07/03 at 16:15; Status DC Magnesium Hydroxide (Milk Of Magnesia) 30 ml DAILYPRN PRN PO CONSTIPATION; Start 10/27/16 at 15:15; Stop 11/26/16 at 15:14 Trazodone HCl (Desyrel) 50 mg QHSP PRN PO INSOMNIA; Start 10/27/16 at 15:15; Stop 11/26/16 at 15:14 Allergies Coded Allergies: No Known Allergies (Unverified , 10/27/16) SP FUENTES MD Oct 30, 2016 15:51
[2016-10-30 18:00] VITALS: BP 133/68
[2016-10-31 07:02] VITALS: BP 117/67
--- NOTE | 2016-10-31 08:20 | IPNPDOC ---
[facility] Progress Note Progress Note DATE OF SERVICE: 10/31/16 Subjective: Patient calm and cooperative with interview. He reports desire to enter an outpt [facility]- substance abuse treatment program. He denies SI.HI. and denies AH. Objective: VITALS - see below. LABS - see below. MENTAL STATUS EXAMINATION: cooperative overall, He is coherent. Good eye contact. His affect is restricted in range. He denies any active suicidal thoughts or intent. No homicidal ideas or intent. Currently, no evidence of any psychosis. His cognition is grossly intact. Intellect is average. Judgment and insight are fair. ASSESSMENT: depressive d/o, unspecified Alcohol use disorder. PLAN: He is admitted to the inpatient psychiatry unit, placed on relevant precautions. -[facility] outpt referral. -Patient declines AD therapy. Vital Signs Vital Signs Date Time Temp Pulse Resp B/P Pulse Ox O2 Delivery O2 Flow Rate FiO2 10/31/16 07:02 98.0 53 16 117/67 10/30/16 18:00 Room Air 10/27/16 14:29 98 Current Medications Current Medications Acetaminophen (Tylenol Tab) 650 mg Q6HP PRN PO HEADACHE or DISCOMFORT; Start at 15:15; Stop 11/26/16 at 15:14 Al Hydrox/Mg Hydrox/Simethicone (Mylanta) 30 ml Q4HP PRN PO HEARTBURN/ INDIGESTION; Start 10/27/16 at 15:15; Stop 11/26/16 at 15:14 Bupropion HCl (Wellbutrin) 75 mg QAM PO Last administered on 10/29/16t 09:30; Start 10/28/16 at 09:00; Stop 10/29/16 at 12:58; Status DC Home Med (Med Rec Complete!) ASDIRECTED XX ; Start 10/27/16 at 16:15; Stop 07/03 at 16:15; Status DC Magnesium Hydroxide (Milk Of Magnesia) 30 ml DAILYPRN PRN PO CONSTIPATION; Start 10/27/16 at 15:15; Stop 11/26/16 at 15:14 Trazodone HCl (Desyrel) 50 mg QHSP PRN PO INSOMNIA; Start 10/27/16 at 15:15; Stop 11/26/16 at 15:14 Allergies Coded Allergies: No Known Allergies (Unverified , 10/27/16) SP FUENTES MD Oct 31, 2016 08:20 Start 10/28/16 at 09:00; Stop 10/29/16 at 12:58; Status DC Home Med (Med Rec Complete!) ASDIRECTED XX ; Start 10/27/16 at 16:15; Stop 07/03 at 16:15; Status DC Magnesium Hydroxide (Milk Of Magnesia) 30 ml DAILYPRN PRN PO CONSTIPATION; Start 10/27/16 at 15:15; Stop 11/26/16 at 15:14 Trazodone HCl (Desyrel) 50 mg QHSP PRN PO INSOMNIA; Start 10/27/16 at 15:15; Stop 11/26/16 at 15:14 Allergies Coded Allergies: No Known Allergies (Unverified , 10/27/16) SP FUENTES MD Oct 31, 2016 08:20
[2016-10-31] MEDS: buPROPion **XL** TABLET 150MG (WELLBUTRIN XL) PO SCH (09:00)
[2016-10-31 18:00] VITALS: BP 132/69
[2016-11-01 06:33] VITALS: BP 125/69
[2016-11-01] MEDS: buPROPion **XL** TABLET 150MG (WELLBUTRIN XL) PO SCH (09:00)
--- NOTE | 2016-11-20 07:36 | DS.PDOC ---
[facility] Discharge Summary Discharge Summary DATE OF ADMISSION: Oct 27, 2016 at 14:14 DATE OF DISCHARGE: Nov 01, 2016 at 11:58 DISCHARGE DIAGNOSES: -Depressive d/o, unspecified REASON FOR ADMISSION: He is 26 years old, he is in the . He is , they have been together for a few years, have a 2-year-old son, they are going through a divorce. The patient came in as he had been drinking heavily, just started, and had a Percocet as well. They have been undergoing difficulties at home, going through the divorce. The patient had been distressed, and he had thoughts of killing himself, though no firm plans, and felt hopeless, suggesting that his and son would be better if he was not around. He feels he had said that because of the alcohol. He then at one point had taken out his knife, and he walked away, and his had called the police. He has been depressed, off and on, says he has tried hiding his difficulties, but that it has been getting more difficult. 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 He says he has generally tended to sleep well, appetite has been good, denies pervasive feelings of depression, though does indicate he feels he gets depressed when he drinks. He was somewhat vague on this, but suggested that his use of alcohol has contributed to difficulties within the marriage, to the point where they are thinking of , they are planning for a legal separation to begin with. He says he has enrolled in [employer] [facility] at [place]. He says he has been planning to go to [employer] school, is unsure if his admission will impact that, is due to go later this year. He has been in the for a few years, has had one deployment, denies any trauma related symptoms or any symptoms indicative of a concussion. He says he was sober for about 4 months, at some point last year, last summer, and felt more "content" when he was not drinking. Suggested improvement in his mood overall when he is free of alcohol. The emergency room (ER) note suggests that he had thought of hanging himself when he was in [facility] within the last year, he does not seem to acknowledge that. This information was obtained by the ER from the patient's , apparently he had hung a rope in the garage with the intent of hanging himself and that the had stopped him. She also said that the police were called but they never showed up. CONSULTANTS INVOLVED: [none] HOSPITAL COURSE: Patient admitted to [facility] due to suicidal statements made while intoxicated on alcohol. Patient denied suicidal intent throughout his admission and has no hx of suicidal behavior. Patient denied SI/HI on day of discharge. He declined antidepressant therapy instead to focus on [facility] counseling. MEDICATIONS ON DISCHARGE: -Patient declined, requested oupt [facility] referral. PLAN/FOLLOWUP ARRANGEMENTS: [Discharge planned set PCP and MHC appts within 2 weeks of discharge]. The amount of time spent in the coordination of care for this patient was approximately [40] minutes. Allergies Coded Allergies: No Known Allergies (Unverified , 10/27/16) SP FUENTES MD Nov 20, 2016 07:36
== END 2016-11-01 11:58 | disposition home or self-care (01) | DRG 881 ==
LOC: M ED 17:55 → M PSY 10-27 14:14
PROVIDERS: ADMIT Family Medicine; ATTEND Psychiatry & Neurology Psychiatry
DX: F43.21 Adjustment disorder with depressed mood (principal); F10.14 Alcohol abuse with alcohol-induced mood disorder; Z63.5 Disruption of family by separation and divorce; F10.129 Alcohol abuse with intoxication, unspecified; Z91.82 Personal history of military deployment

== ENCOUNTER 2016-12-31 12:28 | Emergency (ER) | payer OTHER ==
[~2016-12-31] VITALS: Ht 165.1 cm; Wt 65.8 kg
[~2016-12-31 12:28] MED LIST: IBUP800T23 PO; OXYC1TAB23 PO
[2016-12-31 13:33] LABS: MEAN CORPUSCULAR VOLUME 88.3 fl (80.0-96.0); RED CELL DISTRIBUTION WIDTH 12.6 % (11.5-14.5); WHITE BLOOD COUNT 4.4 K/mm3 (4.0-10.0)
[2016-12-31 14:04] LABS: ALBUMIN 4.1 GM/DL (3.2-5.2); ALBUMIN/GLOBULIN RATIO 1.08 (1.00-1.93); ALKALINE PHOSPHATASE 77 U/L (45-117); ALT/SGPT 27 U/L (12-78); ANION GAP 4 MEQ/L (8-16); AST/SGOT 21 U/L (15-37); BILIRUBIN,DIRECT 0.1 MG/DL (0.0-0.2); BILIRUBIN,TOTAL 0.4 MG/DL (0.2-1.0); BLOOD UREA NITROGEN 8 MG/DL (7-18); CALCIUM LEVEL 8.4 MG/DL (8.5-10.1); CARBON DIOXIDE LEVEL 32 MEQ/L (21-32); CHLORIDE LEVEL 104 MEQ/L (98-107); CREATININE FOR GFR 1.14 MG/DL (0.70-1.30); GLOMERULAR FILTRATION RATE > 60.0 (>60); GLUCOSE, FASTING 117 MG/DL (70-105); POTASSIUM SERUM 3.5 MEQ/L (3.5-5.1); SODIUM LEVEL 140 MEQ/L (136-145); TOTAL PROTEIN 7.9 GM/DL (6.4-8.2)
[2016-12-31 15:17] LABS: METHADONE URINE NEGATIVE (NEGATIVE)
[2016-12-31 22:15] VITALS: BP 135/67
== END 2016-12-31 23:02 | disposition home or self-care (01) ==
LOC: M ED 13:17
DX: F32.9 Major depressive disorder, single episode, unspecified (principal); F10.120 Alcohol abuse with intoxication, uncomplicated; F17.200 Nicotine dependence, unspecified, uncomplicated
CPT/HCPCS: 36415; 80048; 80076; 80306; 84443; 85027; 99285; G0480

== ENCOUNTER 2018-05-27 08:46 | Outpatient (RCR) | payer OTHER | END 2018-06-16 | LOC: M OUTALCOH 05-30 10:00 | DX: F10.20 Alcohol dependence, uncomplicated (principal); F17.200 Nicotine dependence, unspecified, uncomplicated ==

== ENCOUNTER 2018-06-20 10:00 | Outpatient (RCR) | payer OTHER | END 2018-07-17 | LOC: M OUTALCOH 06-27 10:00 | DX: F10.20 Alcohol dependence, uncomplicated (principal); F17.200 Nicotine dependence, unspecified, uncomplicated ==

== ENCOUNTER 2018-07-24 15:00 | Outpatient (RCR) | payer OTHER | END 2018-08-16 | LOC: M OUTALCOH 07-25 14:00 | DX: F10.20 Alcohol dependence, uncomplicated (principal); F17.200 Nicotine dependence, unspecified, uncomplicated ==

== ENCOUNTER 2018-09-13 09:00 | Outpatient (RCR) | payer OTHER ==
[~2018-09-13 09:00] MED LIST changes: +IBUP1TAB7 PO; -IBUP800T23 PO
== END 2018-09-16 ==
LOC: M OUTALCOH 09:00
PROVIDERS: ATTEND Psychiatry & Neurology Psychiatry
DX: F10.20 Alcohol dependence, uncomplicated (principal); F17.200 Nicotine dependence, unspecified, uncomplicated